=== PATIENT | male | born 1955 | race Two or more races ===

== ENCOUNTER 2020-09-26 10:57 | Outpatient (REF) | payer MEDICARE, SELFPAY ==
[2020-09-26 12:47] LABS: Alanine Aminotransferase 17 U/L (0-40); Albumin Level 4.2 g/dL (3.5-5.0); Alkaline Phosphatase 89 U/L (39-117); Anion Gap 12 (12-20); Aspartate Amino Transferase 16 U/L (5-37); Bilirubin Total 0.8 mg/dL (0.0-1.0); Blood Urea Nitrogen 15 mg/dL (9-16); Calcium 9.5 mg/dL (8.4-10.2); Carbon Dioxide 30 mmol/L (22-29); Chloride 103 mmol/L (96-108); Cholesterol 114 mg/dL; Estimated Glomerular Filt Rate > 60; Glucose Random 162 mg/dL (60-115); HDL Cholesterol 52 mg/dL; LDL Cholesterol Calculated 45 mg/dl; Potassium 4.3 mmol/l (3.3-5.1); Sodium 141 mmol/L (135-145); Total Protein 7.1 g/dL (6.5-8.0); Triglycerides 86 mg/dL
[2020-09-26 13:36] LABS: Estimated Average Glucose 289 mg/dL; Hemoglobin A1c % 11.7 %
== END 2020-09-26 10:58 | disposition home or self-care (01) ==
LOC: HO.LAB 10:57
PROVIDERS: PCP Internal Medicine; Visit Provider Internal Medicine
DX: Z00.01 Encounter for general adult medical examination with abnormal findings (principal); E11.65 Type 2 diabetes mellitus with hyperglycemia; E78.00 Pure hypercholesterolemia, unspecified; F32.9 Major depressive disorder, single episode, unspecified; Z86.010 Personal history of colon polyps
CPT/HCPCS: 36415; 80053; 80061; 83036

== ENCOUNTER 2021-01-21 08:51 | Outpatient (REF) | payer MEDICARE, OTHER, SELFPAY ==
[2021-01-21 10:01] LABS: Estimated Average Glucose 309 mg/dL; Hemoglobin A1c % 12.4 %
[2021-01-21 10:08] LABS: Alanine Aminotransferase 21 U/L (0-40); Albumin Level 3.9 g/dL (3.5-5.0); Alkaline Phosphatase 130 U/L (39-117); Anion Gap 11 (12-20); Aspartate Amino Transferase 13 U/L (5-37); Bilirubin Total 0.5 mg/dL (0.0-1.0); Blood Urea Nitrogen 11 mg/dL (9-16); Calcium 8.6 mg/dL (8.4-10.2); Carbon Dioxide 25 mmol/L (22-29); Chloride 106 mmol/L (96-108); Estimated Glomerular Filt Rate > 60; Glucose Random 194 mg/dL (60-115); Sodium 138 mmol/L (135-145); Total Protein 6.6 g/dL (6.5-8.0)
== END 2021-01-21 08:52 | disposition home or self-care (01) ==
LOC: HO.LAB 08:51
PROVIDERS: PCP Internal Medicine; Visit Provider Internal Medicine
DX: E11.65 Type 2 diabetes mellitus with hyperglycemia (principal); E78.00 Pure hypercholesterolemia, unspecified; I10 Essential (primary) hypertension
CPT/HCPCS: 36415; 80053; 83036

== ENCOUNTER 2021-04-29 08:25 | Outpatient (REF) | payer MEDICARE, OTHER, SELFPAY ==
[2021-04-29 09:31] LABS: Estimated Average Glucose 312 mg/dL; Hemoglobin A1c % 12.5 %
[2021-04-29 09:42] LABS: Alanine Aminotransferase 22 U/L (0-40); Albumin Level 3.9 g/dL (3.5-5.0); Alkaline Phosphatase 121 U/L (39-117); Anion Gap 11 (12-20); Aspartate Amino Transferase 19 U/L (5-37); Bilirubin Total 0.8 mg/dL (0.0-1.0); Blood Urea Nitrogen 13 mg/dL (9-16); Calcium 8.9 mg/dL (8.4-10.2); Carbon Dioxide 29 mmol/L (22-29); Chloride 105 mmol/L (96-108); Estimated Glomerular Filt Rate > 60; Glucose Random 212 mg/dL (60-115); Potassium 4.5 mmol/L (3.3-5.1); Sodium 140 mmol/L (135-145); Total Protein 6.6 g/dL (6.5-8.0)
== END 2021-04-29 08:26 | disposition home or self-care (01) ==
LOC: HO.LAB 08:25
PROVIDERS: PCP Internal Medicine; Visit Provider Internal Medicine
DX: E11.65 Type 2 diabetes mellitus with hyperglycemia (principal); M54.9 Dorsalgia, unspecified; S60.46 Insect bite (nonvenomous) of fingers
CPT/HCPCS: 36415; 80053; 83036

== ENCOUNTER 2021-08-13 11:59 | Outpatient (REF) | payer MEDICARE, OTHER, SELFPAY ==
[2021-08-13 14:00] LABS: Estimated Average Glucose 324 mg/dL; Hemoglobin A1c % 12.9 %
[2021-08-13 14:30] LABS: Alanine Aminotransferase 22 U/L (0-40); Albumin Level 4.2 g/dL (3.5-5.0); Alkaline Phosphatase 141 U/L (39-117); Anion Gap 13 (12-20); Aspartate Amino Transferase 23 U/L (5-37); Bilirubin Total 0.6 mg/dL (0.0-1.0); Blood Urea Nitrogen 10 mg/dL (9-16); Calcium 9.7 mg/dL (8.4-10.2); Carbon Dioxide 26 mmol/L (22-29); Chloride 107 mmol/L (96-108); Estimated Glomerular Filt Rate > 60; Glucose Random 339 mg/dL (60-115); Potassium 3.9 mmol/L (3.3-5.1); Sodium 142 mmol/L (135-145); Total Protein 7.2 g/dL (6.5-8.0)
== END 2021-08-13 12:00 | disposition home or self-care (01) ==
LOC: HO.10HDL 11:59
PROVIDERS: Visit Provider Internal Medicine
DX: E11.65 Type 2 diabetes mellitus with hyperglycemia (principal)
CPT/HCPCS: 36415; 80053; 83036

== ENCOUNTER 2021-12-17 12:31 | Outpatient (REF) | payer MEDICARE, OTHER, SELFPAY ==
[2021-12-17 13:22] LABS: Estimated Average Glucose 318 mg/dL; Hemoglobin A1c % 12.7 %
[2021-12-17 13:51] LABS: Alanine Aminotransferase 16 U/L (0-40); Albumin Level 4.3 g/dL (3.5-5.0); Alkaline Phosphatase 125 U/L (39-117); Anion Gap 15 (12-20); Aspartate Amino Transferase 18 U/L (5-37); Bilirubin Total 0.5 mg/dL (0.0-1.0); Blood Urea Nitrogen 12 mg/dL (9-16); Calcium 9.8 mg/dL (8.4-10.2); Carbon Dioxide 23 mmol/L (22-29); Chloride 107 mmol/L (96-108); Cholesterol 236 mg/dL; Estimated Glomerular Filt Rate > 60; Glucose Random 57 mg/dL (60-115); HDL Cholesterol 60 mg/dL; LDL Cholesterol Calculated 156 mg/dl; Potassium 3.7 mmol/L (3.3-5.1); Sodium 141 mmol/L (135-145); Total Protein 7.4 g/dL (6.5-8.0); Triglycerides 103 mg/dL
[2021-12-17 14:12] LABS: Vitamin B12 527 pg/mL (200-900)
[2021-12-17 14:32] LABS: Creatinine Urine 106.64 mg/dL; Microalbum/Creatinine Ratio Ur 13.1 ug/mg cr
== END 2021-12-17 12:32 | disposition home or self-care (01) ==
LOC: HO.LAB 12:31
PROVIDERS: PCP Internal Medicine; Visit Provider Internal Medicine
DX: E11.69 Type 2 diabetes mellitus with other specified complication (principal); E78.00 Pure hypercholesterolemia, unspecified; I10 Essential (primary) hypertension; Z86.010 Personal history of colon polyps
CPT/HCPCS: 36415; 80053; 80061; 82043; 82607; 83036

== ENCOUNTER 2022-01-02 19:01 | Outpatient (REF) | payer MEDICARE, OTHER, SELFPAY ==
--- NOTE | ~2022-01-02 | MR_ITS ---
EXAMINATION: MR CERVICAL SPINE WITHOUT CONTRAST CLINICAL INFORMATION: Cervical radiculopathy. COMPARISON: None available. TECHNIQUE: MRI of the cervical spine was obtained using routine sequences without contrast. FINDINGS: Mild degenerative anterolisthesis of C6 on C7. Otherwise, normal anatomic alignment. Moderate degenerative disc disease from C3-C7 and T2-T4. Mild degenerative disc disease at all additional cervical levels. Associated mixed Modic type discogenic endplate changes including mild Modic type I discogenic edema at C4-C5 and C7-T1. Mild marrow edema within the C2-C4 facets consistent with degenerative stress reaction. No additional suspicious marrow edema. Mild degenerative loss of C5 and C6 vertebral body heights. Otherwise, the vertebral body heights are well-maintained. No overt spinal cord signal abnormalities. Limited evaluation of the soft tissues of the neck without demonstrated abnormalities. The flow voids of the major cervical vessels are maintained. Prominent CSF space posterior to the cerebellum. Prominent arachnoid granulations within the right aspect of the occipital base. Otherwise, normal appearance of the cervicomedullary junction and visualized posterior fossa. SPINAL LEVELS: C2-C3: Mild disc-osteophyte complex. There is no uncovertebral joint arthropathy. There is moderate bilateral facet joint arthropathy. There is severe left and moderate right neural foraminal stenosis. There is no spinal canal stenosis. C3-C4: Moderate disc-osteophyte complex. There is moderate bilateral uncovertebral joint arthropathy. There is moderate bilateral facet joint arthropathy. There is severe bilateral neural foraminal stenosis. There is moderate spinal canal stenosis. C4-C5: Moderate disc-osteophyte complex with superimposed central disc extrusion with inferior migration. There is severe bilateral uncovertebral joint arthropathy. There is moderate bilateral facet joint arthropathy. There is severe bilateral neural foraminal stenosis. There is moderate to severe spinal canal stenosis. C5-C6: Moderate disc-osteophyte complex. There is severe bilateral uncovertebral joint arthropathy. There is moderate bilateral facet joint arthropathy. There is severe bilateral neural foraminal stenosis. There is moderate spinal canal stenosis. C6-C7: Moderate disc-osteophyte complex eccentric to the left. There is moderate bilateral uncovertebral joint arthropathy. There is moderate bilateral facet joint arthropathy. There is severe bilateral neural foraminal stenosis. There is moderate spinal canal stenosis. C7-T1: Mild disc-osteophyte complex. There is mild bilateral uncovertebral joint arthropathy. There is mild bilateral facet joint arthropathy. There is no neural foraminal stenosis. There is no spinal canal stenosis. MR/MR cervical spine wo con IMPRESSION: Advanced multilevel degenerative spondyloarthropathy of the cervical spine as described in detail above. Most notably, there is moderate to severe spinal canal stenosis at C4-C5. Moderate spinal canal stenoses at C3-C4, C5-C6, and C6-C7. Moderate to severe neural foraminal stenoses from C2-C7.
== END 2022-01-02 19:02 | disposition home or self-care (01) ==
LOC: HO.MRI 19:01
PROVIDERS: Visit Provider Internal Medicine
DX: M54.12 Radiculopathy, cervical region (principal)
CPT/HCPCS: 72141

== ENCOUNTER 2022-01-15 09:18 | Day surgery (SDC) | payer MEDICARE, OTHER, SELFPAY ==
[2022-01-09 14:58] VITALS: BMI 30.3
--- NOTE | 2022-01-14 09:35 | P.CONAN_ITS ---
HPI - Anesthesia Eval Consult details Narrative: 66yo M for [facility] Past Medical History Medical History (Updated 01/09/22 @ 14:49 by Liane Zapata, RN) Diabetes Elevated cholesterol HTN (hypertension) Surgical History Surgical History (Updated 01/09/22 @ 14:50 by Liane Zapata, RN) H/O colonoscopy Hx of knee surgery Social History Social History Patient Tobacco Use Status: Tobacco use Unknown Use of substances other than those prescribed or required for medical reasons: No Advance Directives: No Advance Directives Information Provided: Yes (brochure mailed) Advance Directives on File: No Meds Allergies Allergy/AdvReac Type Severity Reaction Status Date / Time No Known Allergies Allergy Verified 01/15/22 09:45 Home Medications Medication Instructions Recorded Confirmed Last Taken Type amlodipine 10 mg tablet 1 tab PO DAILY 01/09/22 01/09/22 Unknown History aspirin 81 mg tablet,delayed 1 tab PO DAILY 01/09/22 01/09/22 Unknown History release brimonidine 0.2 % eye drops 1 drp OPHTHALMIC (EYE) BID 01/09/22 01/09/22 Unknown History insulin glargine 100 unit/mL (3 unit SUBCUT 01/09/22 01/09/22 Unknown History mL) subcutaneous pen (Lantus Solostar U-100 Insulin) insulin lispro 100 unit/mL 15 unit SUBCUT TID 01/09/22 01/09/22 Unknown History subcutaneous pen (Humalog KwikPen (U-100) Insulin) latanoprost 0.005 % eye drops 1 drp OPHTHALMIC (EYE) BEDTIME 01/09/22 01/09/22 Unknown History meloxicam 15 mg tablet 1 tab PO DAILY 01/09/22 01/09/22 Unknown History metformin 1,000 mg tablet 1 tab PO BID 01/09/22 01/09/22 Unknown History rosuvastatin 40 mg tablet 1 tab PO DAILY 01/09/22 01/09/22 Unknown History sertraline 100 mg tablet 1 tab PO DAILY 01/09/22 01/09/22 Unknown History Exam Exam Date and Time: January 14, 2022 0935 Height,Weight and Vital Signs: Height 5 ft 2 in Weight 75.296 kg Pertinent Lab Results Pertinent Lab Results: Laboratory Tests 12/17/21 12:43 Sodium 141 Potassium 3.7 Chloride 107 Carbon Dioxide 23 BUN 12 Creatinine 0.68 Assessment and Plan Assessment Anesthesia Assessment: Chart Reviewed
[2022-01-15 10:01] VITALS: BP 135/91; PULSE 60; RESP 18; TEMP 36.3; O2SAT 99
[2022-01-15 10:02] LABS: Glucose, Whole Blood 127 mg/dL (60-115)
[2022-01-15] MEDS: Lactated Ringers 1,000 ML 100 ML IVCONT (10:07)
--- NOTE | 2022-01-15 10:12 | PC.NURSE ---
IV 20 g angio started in right forearm, not groin.
[2022-01-15 12:19] VITALS: BP 82/42; PULSE 55; RESP 16; TEMP 36.1; O2SAT 99
--- NOTE | 2022-01-15 12:26 | PM.OP ---
Brief Operative Note Date of Service: 01/15/22 Pre-op diagnosis: Screening Post-op diagnosis: other (Diverticulosis) Procedure: Colonoscopy to the cecum and TI Surgeon: Ad Cespedes Anesthesia: MAC Was an Kelp Or Seagrass Gatherer used for this Procedure?: No Estimated blood loss (mL): 0 Pathology: none sent Condition: stable Disposition: PACU
[2022-01-15 12:34] VITALS: BP 103/55; PULSE 56; RESP 16; O2SAT 98
[2022-01-15 12:49] VITALS: BP 115/69; PULSE 58; RESP 16; TEMP 36.1; O2SAT 98
--- NOTE | 2022-01-15 23:15 | OP_ITS ---
SURGEON: Ad Cespedes MD INDICATIONS: The patient presents for evaluation of colorectal cancer screening and personal history of tubular adenoma of the colon. Full consent was obtained from him for this, including risks of bleeding and perforation. PREOPERATIVE DIAGNOSIS: POSTOPERATIVE DIAGNOSIS: PROCEDURE PERFORMED: Colonoscopy to cecum and terminal ileum. ESTIMATED BLOOD LOSS: COMPLICATIONS: ANESTHESIA: Monitored anesthesia care. ASSISTANTS: SPECIMENS: PREOPERATIVE DIAGNOSES: Colorectal cancer screening and personal history of tubular adenoma of the colon. POSTOPERATIVE DIAGNOSES: Colorectal cancer screening and personal history of tubular adenoma of the colon, sigmoid diverticulosis, and internal hemorrhoids. DESCRIPTION OF PROCEDURE: The patient was placed in the left lateral decubitus position. The digital rectal exam revealed no abnormalities. The Olympus video pediatric colonoscope was entered into the rectum and advanced easily to the cecum. Once in the cecum, I did identify normal-appearing cecal pouch with appendiceal orifice and a normal-appearing ileocecal valve. The terminal ileum was cannulated and appeared normal. The scope was withdrawn back from the colon. The entire cecum and ileocecal valve appeared normal. The scope was slowly withdrawn assessing all mucosal surfaces carefully. Preparation was excellent. I did not visualize any sign of polyps, colitis, nor angiodysplasia. There was a mild amount of sigmoid diverticulosis. In the rectum, scope was retroflexed visualizing small internal hemorrhoids, but no other pathology. The rectal mucosa appeared normal. Scope was straightened and withdrawn from the patient. He tolerated the procedure well and was returned to recovery area in stable condition. IMPRESSION: 1. Mild sigmoid diverticulosis. 2. Internal hemorrhoids. PLAN: Given his previous history, I would recommend a followup colonoscopy in 5 years for further screening. He will otherwise see me on a p.r.n. basis. He was advised that he could resume his aspirin today. MD ALEXIS Jones/TIFFANIE / [id number]
== END 2022-01-15 13:02 | disposition home or self-care (01) ==
PROVIDERS: PCP Internal Medicine; Visit Provider Internal Medicine
PROC: 0DJD8ZZ Inspection of Lower Intestinal Tract, Via Natural or Artificial Opening Endoscopic (ICD-10-PCS; CPT 45378; principal; 2022-01-15 11:00)
DX: Z12.11 Encounter for screening for malignant neoplasm of colon (principal); Z86.010 Personal history of colon polyps; K57.30 Diverticulosis of large intestine without perforation or abscess without bleeding; K64.8 Other hemorrhoids; I10 Essential (primary) hypertension; E78.5 Hyperlipidemia, unspecified; E11.9 Type 2 diabetes mellitus without complications; Z79.4 Long term (current) use of insulin; Z79.82 Long term (current) use of aspirin; Z79.899 Other long term (current) drug therapy
CPT/HCPCS: G0105; 82947

== ENCOUNTER 2022-07-07 07:40 | Outpatient (REF) | payer MEDICARE, OTHER, SELFPAY ==
[2022-07-07 08:17] LABS: Estimated Average Glucose 315 mg/dL; Hemoglobin A1c % 12.6 %
[2022-07-07 08:28] LABS: Alanine Aminotransferase 14 U/L (0-40); Albumin Level 3.9 g/dL (3.5-5.0); Alkaline Phosphatase 125 U/L (39-117); Anion Gap 14 (12-20); Aspartate Amino Transferase 14 U/L (5-37); Bilirubin Total 0.5 mg/dL (0.0-1.0); Blood Urea Nitrogen 12 mg/dL (9-16); Calcium 9.1 mg/dL (8.4-10.2); Carbon Dioxide 25 mmol/L (22-29); Chloride 104 mmol/L (96-108); Cholesterol 258 mg/dL; Estimated Glomerular Filt Rate > 60; Glucose Random 282 mg/dL (60-115); HDL Cholesterol 57 mg/dL; LDL Cholesterol Calculated 171 mg/dl; Potassium 4.7 mmol/L (3.3-5.1); Sodium 138 mmol/L (135-145); Total Protein 6.7 g/dL (6.5-8.0); Triglycerides 154 mg/dL
== END 2022-07-07 07:41 | disposition home or self-care (01) ==
LOC: HO.LAB 07:40
PROVIDERS: PCP Internal Medicine; Visit Provider Internal Medicine
DX: E78.00 Pure hypercholesterolemia, unspecified (principal); I10 Essential (primary) hypertension; E11.9 Type 2 diabetes mellitus without complications
CPT/HCPCS: 36415; 80053; 80061; 83036

== ENCOUNTER 2022-10-06 08:45 | Outpatient (REF) | payer MEDICARE, OTHER, SELFPAY ==
[2022-10-06 09:09] LABS: MANUAL DIFF FLAG NO
[2022-10-06 09:50] LABS: Basophils Absolute Auto 0.1 X10*3/uL (0.0-0.2); Basophils Percent Auto 1.2 % (0-2); Eosinophils Absolute Auto 0.2 X10*3/uL (0.0-0.4); Eosinophils Percent Auto 4.2 % (0-4); Hematocrit 39.1 % (42.0-52.0); Hemoglobin 12.9 g/dl (14.0-18.0); Imm Gran Abs Auto 0.01 X10*3/uL (0.00-0.03); Imm Gran Pct Auto 0.2 % (0.0-0.4); Lymphocytes Absolute Auto 1.6 X10*3/uL (1.2-4.9); Mean Corpuscular Hemoglobin 26.4 pg (27.0-33.0); Mean Platelet Volume 9.2 fL (9.4-12.4); Monocytes Absolute Auto 0.3 X10*3/uL (0.1-1.2); Monocytes Percent Auto 8.4 % (2-11); Neutrophils Absolute Auto 1.9 x10*3/uL (2.0-8.3); Platelet Count 263 X10*3/uL (160-400); Red Blood Count 4.89 X10*6/uL (4.60-5.80); Red Cell Distribution Width 14.6 % (11.0-16.0)
[2022-10-06 10:12] LABS: Creatinine Urine 187.35 mg/dL; Microalbum/Creatinine Ratio Ur 19.7 ug/mg cr
[2022-10-06 10:25] LABS: Alanine Aminotransferase 10 U/L (0-40); Alkaline Phosphatase 113 U/L (39-117); Anion Gap 10 (12-20); Aspartate Amino Transferase 12 U/L (5-37); Bilirubin Total 0.8 mg/dL (0.0-1.0); Blood Urea Nitrogen 13 mg/dL (9-16); Carbon Dioxide 27 mmol/L (22-29); Chloride 107 mmol/L (96-108); Cholesterol 142 mg/dL; Estimated Glomerular Filt Rate > 60; Glucose Random 200 mg/dL (60-115); HDL Cholesterol 56 mg/dL; LDL Cholesterol Calculated 69 mg/dl; Potassium 4.2 mmol/L (3.3-5.1); Sodium 140 mmol/L (135-145); Total Protein 6.7 g/dL (6.5-8.0); Triglycerides 85 mg/dL
[2022-10-06 10:28] LABS: Estimated Average Glucose 355 mg/dL
[2022-10-06 10:42] LABS: Prostate Specific Antigen Scr 1.58 ng/mL (<0.05-4.0); Thyroid Stimulating Hormone 0.73 uIU/mL (0.32-4.0)
== END 2022-10-06 08:46 | disposition home or self-care (01) ==
LOC: HO.LAB 08:45
PROVIDERS: Visit Provider Internal Medicine
DX: Z12.5 Encounter for screening for malignant neoplasm of prostate (principal); E11.65 Type 2 diabetes mellitus with hyperglycemia; E78.00 Pure hypercholesterolemia, unspecified; I10 Essential (primary) hypertension
CPT/HCPCS: 36415; 80053; 80061; 82043; 83036; 84153; 84443; 85025

== ENCOUNTER 2023-01-05 09:38 | Outpatient (REF) | payer MEDICARE, OTHER, SELFPAY ==
[2023-01-05 10:57] LABS: MANUAL DIFF FLAG NO
[2023-01-05 11:09] LABS: Basophils Absolute Auto 0.1 X10*3/uL (0.0-0.2); Basophils Percent Auto 1.2 % (0-2); Eosinophils Absolute Auto 0.1 X10*3/uL (0.0-0.4); Eosinophils Percent Auto 2.5 % (0-4); Hematocrit 39.6 % (42.0-52.0); Hemoglobin 12.9 g/dl (14.0-18.0); Imm Gran Abs Auto 0.01 X10*3/uL (0.00-0.03); Imm Gran Pct Auto 0.2 % (0.0-0.4); Lymphocytes Absolute Auto 1.9 X10*3/uL (1.2-4.9); Lymphocytes Percent Auto 37.6 % (20-40); Mean Corpuscular HGB Conc 32.6 g/dl (31.0-36.0); Mean Corpuscular Hemoglobin 26.9 pg (27.0-33.0); Mean Corpuscular Volume 82.5 fL (80.0-98.0); Mean Platelet Volume 9.2 fL (9.4-12.4); Monocytes Absolute Auto 0.4 X10*3/uL (0.1-1.2); Monocytes Percent Auto 8.6 % (2-11); Neutrophils Absolute Auto 2.6 x10*3/uL (2.0-8.3); Neutrophils Percent Auto 49.9 % (45-73); Platelet Count 347 X10*3/uL (160-400); Red Cell Distribution Width 13.6 % (11.0-16.0); White Blood Count 5.1 X10*3/uL (4.8-10.8)
[2023-01-05 12:22] LABS: Creatinine Urine 64.42 mg/dL; Microalbum/Creatinine Ratio Ur 12.4 ug/mg cr
[2023-01-05 12:35] LABS: Alanine Aminotransferase 14 U/L (0-40); Albumin Level 4.1 g/dL (3.5-5.0); Alkaline Phosphatase 120 U/L (39-117); Anion Gap 13 (12-20); Aspartate Amino Transferase 19 U/L (5-37); Bilirubin Total 0.7 mg/dL (0.0-1.0); Blood Urea Nitrogen 10 mg/dL (9-16); Carbon Dioxide 26 mmol/L (22-29); Chloride 105 mmol/L (96-108); Cholesterol 170 mg/dL; Estimated Glomerular Filt Rate > 60; Glucose Fasting 106 mg/dL (60-99); HDL Cholesterol 49 mg/dL; LDL Cholesterol Calculated 104 mg/dl; Potassium 4.1 mmol/L (3.3-5.1); Sodium 140 mmol/L (135-145); Total Protein 7.2 g/dL (6.5-8.0); Triglycerides 85 mg/dL
[2023-01-05 12:44] LABS: Estimated Average Glucose 197 mg/dL; Hemoglobin A1c % 8.5 %
[2023-01-05 12:59] LABS: Prostate Specific Antigen Scr 2.59 ng/mL (<0.05-4.0); Thyroid Stimulating Hormone 1.22 uIU/mL (0.32-4.0)
== END 2023-01-05 09:39 | disposition home or self-care (01) ==
LOC: HO.10HDL 09:38
PROVIDERS: Visit Provider Internal Medicine
DX: E11.65 Type 2 diabetes mellitus with hyperglycemia (principal); E78.00 Pure hypercholesterolemia, unspecified; I10 Essential (primary) hypertension; Z12.5 Encounter for screening for malignant neoplasm of prostate
CPT/HCPCS: 36415; 80053; 80061; 82043; 83036; 84153; 84443; 85025

== ENCOUNTER 2023-01-06 11:42 | Outpatient (REF) | payer MEDICARE, OTHER, SELFPAY ==
--- NOTE | ~2023-01-06 | XR_ITS ---
EXAMINATION: XR SHOULDER, RIGHT CLINICAL INFORMATION: Osteoarthritis of the right shoulder. COMPARISON: None available. TECHNIQUE: AP external rotation, Grashey, scapular Y, and axillary views of the right shoulder. FINDINGS: There is no evidence of acute fracture or dislocation of the right shoulder. No significant degenerative change of the glenohumeral joint is seen. No calcific tendinitis is evident. There is mild degenerative change of the acromioclavicular joint. There is no widening of the coracoclavicular space. XR/XR shoulder RT min 2V IMPRESSION: No significant right shoulder abnormality appreciated.
== END 2023-01-06 11:43 | disposition home or self-care (01) ==
LOC: HO.XRAY 11:42
PROVIDERS: PCP Internal Medicine; Visit Provider Internal Medicine
DX: M19.011 Primary osteoarthritis, right shoulder (principal)
CPT/HCPCS: 73030

== ENCOUNTER → 2023-02-17 14:26 | Outpatient (BNVA) | payer MEDICARE, OTHER, SELFPAY | PROVIDERS: PCP Internal Medicine; Visit Provider Physician Assistant | DX: M54.12 Radiculopathy, cervical region (principal) | CPT/HCPCS: 99202 ==

== ENCOUNTER 2023-04-06 09:12 | Outpatient (REF) | payer MEDICARE, OTHER, SELFPAY ==
[2023-04-06 11:08] LABS: Estimated Average Glucose 189 mg/dL; Hemoglobin A1c % 8.2 %
[2023-04-06 11:16] LABS: Alanine Aminotransferase 13 U/L (0-40); Albumin Level 4.1 g/dL (3.5-5.0); Alkaline Phosphatase 99 U/L (39-117); Anion Gap 15 (12-20); Aspartate Amino Transferase 14 U/L (5-37); Bilirubin Total 0.5 mg/dL (0.0-1.0); Blood Urea Nitrogen 14 mg/dL (9-16); Carbon Dioxide 24 mmol/L (22-29); Chloride 108 mmol/L (96-108); Estimated Glomerular Filt Rate > 60; Glucose Random 129 mg/dL (60-115); Potassium 4.9 mmol/L (3.3-5.1); Sodium 142 mmol/L (135-145); Total Protein 7.3 g/dL (6.5-8.0)
== END 2023-04-06 09:13 | disposition home or self-care (01) ==
LOC: HO.10HDL 09:12
PROVIDERS: Visit Provider Internal Medicine
DX: E11.65 Type 2 diabetes mellitus with hyperglycemia (principal); E78.00 Pure hypercholesterolemia, unspecified; I10 Essential (primary) hypertension; J02.9 Acute pharyngitis, unspecified; M67.813 Other specified disorders of tendon, right shoulder; R80.8 Other proteinuria
CPT/HCPCS: 36415; 80053; 83036

== ENCOUNTER 2023-05-22 07:20 | Outpatient (REF) | payer MEDICARE, OTHER, SELFPAY ==
--- NOTE | ~2023-05-22 | CT_ITS ---
CT CERVICAL SPINE WITHOUT CONTRAST HISTORY: Spondylosis TECHNIQUE: CT images of the cervical spine were acquired without intravenous contrast. This CT examination was performed using dose optimization techniques as appropriate, variously including the following: *Automated exposure control *Adjustment of mA and/or kV according to patient size (this includes techniques or standardized protocols for targeted exams where dose is matched to indication/reason for exam; i.e. extremities or head) *Use of iterative reconstruction technique DLP: 351.01 mGy-cm COMPARISON: MRI cervical spine 01/02/2022 FINDINGS: The craniocervical junction is intact. Mild arthrosis of the atlantodental interval. The cervical lordosis is preserved. There is no significant spondylolisthesis. Vertebral body heights are normal without acute compression fracture. No suspicious osseous lesion. There is mild disc space height loss at C4-C5 and C5-C6. There are multilevel degenerative changes with level by level detail as follows: C2-C3: Mild facet arthropathy. No significant osseous spinal canal stenosis or neural foraminal narrowing. C3-C4: Severe right facet arthropathy and right greater than left uncovertebral hypertrophy. Disc osteophyte complex. Mild to moderate central spinal canal stenosis. Moderate right and mild left osseous spinal canal stenosis. C4-C5: Mild facet arthropathy, uncovertebral hypertrophy, disc bulge. Moderate to severe spinal canal stenosis. Mild osseous bilateral neural foraminal narrowing. C5-C6: Mild facet arthropathy, uncovertebral hypertrophy, disc osteophyte complex. Moderate central spinal canal stenosis. Mild to moderate osseous bilateral neural foraminal narrowing C6-C7: Mild facet arthropathy. Left eccentric disc osteophyte complex. No significant osseous spinal canal stenosis. Moderate spinal canal stenosis C7-T1: No spinal canal or foraminal stenosis. No significant abnormalities of the paraspinal musculature. There is a 7 mm pulmonary nodule at the right lung apex with small region of peripheral lucency/cavitation. The visualized intracranial structures are normal. There is a pseudoarticulation between the superior cornu of the right thyroid cartilage and the right posterior hyoid bone. CT/CT cervical spine wo IV con IMPRESSION: 1. Multilevel cervical spondylosis with moderate to severe spinal canal stenosis at C4-C5 and moderate spinal canal stenosis at C5-C6 and C6-C7. Multilevel mild to moderate osseous neural foraminal narrowing as described. 2. There is a 7 mm pulmonary nodule at the right lung apex with small region of peripheral lucency/cavitation. Recommend further evaluation with dedicated CT of the chest.
== END 2023-05-22 07:21 | disposition home or self-care (01) ==
LOC: HO.CT 07:20
PROVIDERS: Visit Provider Physician Assistant
DX: M47.12 Other spondylosis with myelopathy, cervical region (principal)
CPT/HCPCS: 72125

== ENCOUNTER 2023-07-06 09:50 | Outpatient (REF) | payer MEDICARE, OTHER, SELFPAY ==
[2023-07-06 10:45] LABS: Estimated Average Glucose 177 mg/dL; Hemoglobin A1c % 7.8 % (<6.0)
[2023-07-06 11:27] LABS: Alanine Aminotransferase 16 U/L (0-40); Albumin Level 4.2 g/dL (3.5-5.0); Alkaline Phosphatase 125 U/L (39-117); Anion Gap 12 (12-20); Aspartate Amino Transferase 17 U/L (5-37); Bilirubin Total 0.6 mg/dL (0.0-1.0); Blood Urea Nitrogen 13 mg/dL (9-16); Calcium 10.5 mg/dL (8.4-10.2); Carbon Dioxide 26 mmol/L (22-29); Chloride 106 mmol/L (96-108); Cholesterol 229 mg/dL (<200); Estimated Glomerular Filt Rate > 60; Glucose Random 122 mg/dL (60-115); HDL Cholesterol 46 mg/dL (>40); LDL Cholesterol Calculated 150 mg/dL (<100); Sodium 140 mmol/L (135-145); Total Protein 7.8 g/dL (6.5-8.0); Triglycerides 165 mg/dL (<150)
== END 2023-07-06 09:51 | disposition home or self-care (01) ==
LOC: HO.LAB 09:50
PROVIDERS: PCP Internal Medicine; Visit Provider Internal Medicine
DX: E11.65 Type 2 diabetes mellitus with hyperglycemia (principal); E78.00 Pure hypercholesterolemia, unspecified; M48.02 Spinal stenosis, cervical region; M54.12 Radiculopathy, cervical region
CPT/HCPCS: 36415; 80053; 80061; 83036

== ENCOUNTER 2023-10-12 07:32 | Outpatient (REF) | payer MEDICARE, OTHER, SELFPAY ==
[2023-10-12 08:06] LABS: MANUAL DIFF FLAG NO
[2023-10-12 08:50] LABS: Basophils Absolute Auto 0.1 X10*3/uL (0.0-0.2); Basophils Percent Auto 1.3 % (0-2); Eosinophils Absolute Auto 0.2 X10*3/uL (0.0-0.4); Eosinophils Percent Auto 3.9 % (0-4); Hematocrit 43.1 % (42.0-52.0); Hemoglobin 14.8 g/dl (14.0-18.0); Imm Gran Abs Auto 0.01 X10*3/uL (0.00-0.03); Imm Gran Pct Auto 0.2 % (0.0-0.4); Lymphocytes Absolute Auto 2.2 X10*3/uL (1.2-4.9); Lymphocytes Percent Auto 38.8 % (20-40); Mean Corpuscular HGB Conc 34.3 g/dl (31.0-36.0); Mean Corpuscular Hemoglobin 28.6 pg (27.0-33.0); Mean Corpuscular Volume 83.4 fL (80.0-98.0); Mean Platelet Volume 9.5 fL (9.4-12.4); Monocytes Absolute Auto 0.4 X10*3/uL (0.1-1.2); Monocytes Percent Auto 7.9 % (2-11); Neutrophils Absolute Auto 2.7 x10*3/uL (2.0-8.3); Neutrophils Percent Auto 47.9 % (45-73); Platelet Count 312 X10*3/uL (160-400); Red Blood Count 5.17 X10*6/uL (4.60-5.80); Red Cell Distribution Width 12.5 % (11.0-16.0); White Blood Count 5.6 X10*3/uL (4.8-10.8)
[2023-10-12 09:01] LABS: Estimated Average Glucose 258 mg/dL; Hemoglobin A1c % 10.6 % (<6.0)
[2023-10-12 09:20] LABS: Alanine Aminotransferase 18 U/L (0-40); Alkaline Phosphatase 143 U/L (39-117); Anion Gap 13 (12-20); Aspartate Amino Transferase 18 U/L (5-37); Bilirubin Total 0.5 mg/dL (0.0-1.0); Blood Urea Nitrogen 11 mg/dL (9-16); Calcium 9.4 mg/dL (8.4-10.2); Carbon Dioxide 29 mmol/L (22-29); Chloride 104 mmol/L (96-108); Cholesterol 116 mg/dL (<200); Estimated Glomerular Filt Rate > 60; Glucose Random 201 mg/dL (60-115); HDL Cholesterol 49 mg/dL (>40); LDL Cholesterol Calculated 54 mg/dL (<100); Potassium 4.3 mmol/L (3.3-5.1); Sodium 142 mmol/L (135-145); Total Protein 7.5 g/dL (6.5-8.0); Triglycerides 67 mg/dL (<150)
[2023-10-12 09:20] LABS: Creatinine Urine 195.86 mg/dL; Microalbum/Creatinine Ratio Ur 14.8 ug/mg cr (<30)
[2023-10-12 10:03] LABS: Prostate Specific Antigen Scr 1.51 ng/mL (<0.05-4.0)
== END 2023-10-12 07:33 | disposition home or self-care (01) ==
LOC: HO.LAB 07:32
PROVIDERS: PCP Internal Medicine; Visit Provider Internal Medicine
DX: E11.65 Type 2 diabetes mellitus with hyperglycemia (principal); E78.00 Pure hypercholesterolemia, unspecified; I10 Essential (primary) hypertension; K21.9 Gastro-esophageal reflux disease without esophagitis; Z68.29 Body mass index [BMI] 29.0-29.9, adult; Z12.5 Encounter for screening for malignant neoplasm of prostate
CPT/HCPCS: 36415; 80053; 80061; 82043; 82570; 83036; 84153; 85025

== ENCOUNTER 2024-01-19 06:40 | Outpatient (REF) | payer MEDICARE, OTHER, SELFPAY ==
[2024-01-19 08:08] LABS: Estimated Average Glucose 286 mg/dL; Hemoglobin A1c % 11.6 % (<6.0)
[2024-01-19 08:27] LABS: Alanine Aminotransferase 13 U/L (0-40); Albumin Level 4.2 g/dL (3.5-5.0); Alkaline Phosphatase 179 U/L (39-117); Anion Gap 14 (12-20); Aspartate Amino Transferase 15 U/L (5-37); Bilirubin Total 0.4 mg/dL (0.0-1.0); Blood Urea Nitrogen 18 mg/dL (9-16); Calcium 9.1 mg/dL (8.4-10.2); Carbon Dioxide 25 mmol/L (22-29); Chloride 107 mmol/L (96-108); Estimated Glomerular Filt Rate > 60; Glucose Random 255 mg/dL (60-115); Potassium 4.1 mmol/L (3.3-5.1); Sodium 142 mmol/L (135-145); Total Protein 7.6 g/dL (6.5-8.0)
== END 2024-01-19 06:41 | disposition home or self-care (01) ==
LOC: HO.LAB 06:40
PROVIDERS: PCP Internal Medicine; Visit Provider Internal Medicine
DX: E78.00 Pure hypercholesterolemia, unspecified (principal); I10 Essential (primary) hypertension; M17.12 Unilateral primary osteoarthritis, left knee
CPT/HCPCS: 36415; 80053; 83036

== ENCOUNTER 2024-04-13 07:26 | Outpatient (REF) | payer MEDICARE, OTHER, SELFPAY ==
[2024-04-13 08:05] LABS: Estimated Average Glucose 240 mg/dL
[2024-04-13 08:18] LABS: Alanine Aminotransferase 17 U/L (0-40); Albumin Level 4.1 g/dL (3.5-5.0); Alkaline Phosphatase 110 U/L (39-117); Anion Gap 10 (12-20); Aspartate Amino Transferase 16 U/L (5-37); Bilirubin Total 0.5 mg/dL (0.0-1.0); Blood Urea Nitrogen 14 mg/dL (9-16); Calcium 9.3 mg/dL (8.4-10.2); Carbon Dioxide 29 mmol/L (22-29); Chloride 108 mmol/L (96-108); Estimated Glomerular Filt Rate > 60; Glucose Random 102 mg/dL (60-115); Sodium 143 mmol/L (135-145); Total Protein 6.8 g/dL (6.5-8.0)
== END 2024-04-13 07:27 | disposition home or self-care (01) ==
LOC: HO.LAB 07:26
PROVIDERS: PCP Internal Medicine; Visit Provider Internal Medicine
DX: E11.65 Type 2 diabetes mellitus with hyperglycemia (principal); I10 Essential (primary) hypertension; M17.12 Unilateral primary osteoarthritis, left knee
CPT/HCPCS: 36415; 80053; 83036

== ENCOUNTER 2024-09-01 07:01 | Outpatient (REF) | payer MEDICARE, OTHER, SELFPAY ==
[2024-09-01 07:55] LABS: Estimated Average Glucose 269 mg/dL; Hemoglobin A1C 360.2055 umol/L; Total Hemoglobin (HGBA1C) 3732.6788 umol/L
[2024-09-01 08:19] LABS: Creatinine Urine 165.25 mg/dL; Microalbum/Creatinine Ratio Ur 13.9 ug/mg cr (<30)
[2024-09-01 08:36] LABS: Alanine Aminotransferase 27 U/L (0-40); Albumin Level 4.3 g/dL (3.5-5.0); Alkaline Phosphatase 146 U/L (39-117); Anion Gap 10 (12-20); Aspartate Amino Transferase 20 U/L (5-37); Bilirubin Total 0.7 mg/dL (0.0-1.0); Blood Urea Nitrogen 16 mg/dL (9-16); Calcium 9.3 mg/dL (8.4-10.2); Carbon Dioxide 30 mmol/L (22-29); Chloride 103 mmol/L (96-108); Cholesterol 141 mg/dL (<200); Estimated Glomerular Filt Rate > 60; Glucose Random 172 mg/dL (60-115); HDL Cholesterol 51 mg/dL (>40); LDL Cholesterol Calculated 73 mg/dL (<100); Potassium 3.7 mmol/L (3.3-5.1); Sodium 139 mmol/L (135-145); Total Protein 7.7 g/dL (6.5-8.0); Triglycerides 88 mg/dL (<150)
[2024-09-01 08:39] LABS: Prostate Specific Antigen Scr 2.11 ng/mL (<0.05-4.0)
== END 2024-09-01 07:02 | disposition home or self-care (01) ==
LOC: HO.LAB 07:01
PROVIDERS: PCP Internal Medicine; Visit Provider Internal Medicine
DX: E11.9 Type 2 diabetes mellitus without complications (principal); E78.00 Pure hypercholesterolemia, unspecified; I10 Essential (primary) hypertension; N40.0 Benign prostatic hyperplasia without lower urinary tract symptoms; Z12.5 Encounter for screening for malignant neoplasm of prostate
CPT/HCPCS: 36415; 80053; 80061; 82043; 82570; 83036; 84153

== ENCOUNTER 2024-11-28 07:28 | Outpatient (REF) | payer MEDICARE, OTHER, SELFPAY ==
[2024-11-28 09:02] LABS: Estimated Average Glucose 229 mg/dL; Hemoglobin A1c % 9.6 % (<6.0)
[2024-11-28 09:22] LABS: Alanine Aminotransferase 21 U/L (0-40); Albumin Level 4.2 g/dL (3.5-5.0); Alkaline Phosphatase 109 U/L (39-117); Anion Gap 11 (12-20); Aspartate Amino Transferase 22 U/L (5-37); Bilirubin Total 0.6 mg/dL (0.0-1.0); Blood Urea Nitrogen 8 mg/dL (9-16); Calcium 8.9 mg/dL (8.4-10.2); Carbon Dioxide 28 mmol/L (22-29); Chloride 108 mmol/L (96-108); Estimated Glomerular Filt Rate > 60; Glucose Random 81 mg/dL (60-115); Potassium 4.4 mmol/L (3.3-5.1); Sodium 143 mmol/L (135-145); Total Protein 7.2 g/dL (6.5-8.0)
== END 2024-11-28 07:29 | disposition home or self-care (01) ==
LOC: HO.LAB 07:28
PROVIDERS: PCP Internal Medicine; Visit Provider Internal Medicine
DX: E11.65 Type 2 diabetes mellitus with hyperglycemia (principal); E78.00 Pure hypercholesterolemia, unspecified; I10 Essential (primary) hypertension; Z68.29 Body mass index [BMI] 29.0-29.9, adult
CPT/HCPCS: 36415; 80053; 83036

== ENCOUNTER 2025-01-12 10:19 | Outpatient (REF) | payer MEDICARE, OTHER, SELFPAY ==
--- OUTSIDE RECORDS SUMMARY | 2025-01-12 11:34 | XMS_ITS | Patient Health Record ---
Author Organization [facility] Address [address] [place] [id number] Care Team Providers Care Vet Tech Name Role Phone Jchuy Donna Primary Care Provider UnavailAd Burr Unavailable [phone] Allergies No Known Allergies Reason For Referral No Information Medications Medication SIG (Take, Route, Frequency, Duration) Notes Start Date End Date Status Rosuvastatin Calcium 40 MG Oral for 90 Active Lantus SoloStar 100 UNIT/ML Subcutaneous for 89 Active metFORMIN HCl 1000 MG TAKE 1 TABLET BY M OUTH TWICE DAILY Oral for 90 Active HumaLOG KwikPen 100 UNIT/ML INJECT 15 UNITS UNDER THE SKIN THREE TIMES DAILY Subcutaneous for 88 Active Dulcolax (colon prep) 5 MG take at 3:00 p.m and 7:00p.m. Orally two tablets twice a day for one day for 1 day 12/18/2021 Active MiraLax (colon prep) 17 GM/SCOOP 1 238 Gm bottle mixed with Gatorade or Crystal Light Orally begin at 5:00 p.m. the day before the procedure for 1 day 12/18/2021 Active Aspir-81 Active Latanoprost 0.005 % Ophthalmic for 75 Active Meloxicam 15 MG Oral for 90 Ac tive Immunizations Vaccine Route Administration Date Status Comme nts Influenza Unknown 06/25/2021 Administered Social History Tobacco Use: Social History Observation Description Date Details (start date - stop date) Never Smoker NA - NA Tobacco Use/Smoking Question Answer Notes Patient is a nonsmoker Alcohol Screen Question Answer Notes Did you have a drink contain ing alcohol in the past year? Yes How often did you have a dri nk containing alcohol in the past year? 2 to 4 times a month (2 points) Points 2 Interpretation Negative Section Notes: Nonsmoker; no sig alcohol Nonsmoker; no sig alcohol Problems Problem Type SNOMED Code ICD Code Onset Dates Problem Status W/U Status Risk Notes Problem 056933042 Encounter for screening for malignant neoplasm of colon (Z12.11) Active confirmed Problem 121380475 History of adenomatous polyp of colon (Z86.010) Active confirmed Problem 408691581 Preprocedural examination (Z01.818) Active confirmed Problem History of colon polyps (Z86.010) Active confirmed Problem Diverticulosis of colon (808962998) Diverticulosis of colon (K57.30) Active confirmed Plan Of Treatment Future Test Test Name Order Date COLONOSCOPY 02/24/2017 COLONOSCOPY 12/18/2021 Insurance Providers Payer Name Payer Address Payer Phone Subscriber Number Group Number Insured Name Patient Relationship to Insured Coverage Start Date Coverage End Date [place] [address] [place] [address] [id number] REYNA GRANT Self - patient is the insured [facility] [address] [place] [address] [id number] REYNA GRANT Self - patient is the insured Medical (General) History Medical History History ICD Code NIDDM---uses Metformin daily and prn ins ulin Hypertension Denies [place],,CVA,Lung disease,renal diseas e Seasonal allergies Hyperlipidemia Negative screening colonosco py in November of 2006--only mild sigmoid diverticulosis and small internal hemorrhoids Colonoscopy 05/2017 with small tubular ad enomas removed Surgical History Surgery Date(Month/Year) Left knee
[2025-01-12 13:52] LABS: Estimated Average Glucose 249 mg/dL; Hemoglobin A1C 327.3456 umol/L; Hemoglobin A1c % 10.3 % (<6.0); Total Hemoglobin (HGBA1C) 3682.7745 umol/L
[2025-01-12 13:55] LABS: Alanine Aminotransferase 24 U/L (0-40); Albumin Level 4.2 g/dL (3.5-5.0); Alkaline Phosphatase 120 U/L (39-117); Anion Gap 11 (12-20); Aspartate Amino Transferase 21 U/L (5-37); Bilirubin Total 0.6 mg/dL (0.0-1.0); Blood Urea Nitrogen 12 mg/dL (9-16); Calcium 9.4 mg/dL (8.4-10.2); Carbon Dioxide 32 mmol/L (22-29); Chloride 104 mmol/L (96-108); Estimated Glomerular Filt Rate > 60; Glucose Random 66 mg/dL (60-115); Potassium 4.5 mmol/L (3.3-5.1); Sodium 142 mmol/L (135-145); Total Protein 7.3 g/dL (6.5-8.0)
== END 2025-01-12 10:20 | disposition home or self-care (01) ==
LOC: HO.10HDL 10:19
PROVIDERS: Visit Provider Internal Medicine
DX: E11.65 Type 2 diabetes mellitus with hyperglycemia (principal); E16.1 Other hypoglycemia; E78.00 Pure hypercholesterolemia, unspecified; I10 Essential (primary) hypertension
CPT/HCPCS: 36415; 80053; 83036

== ENCOUNTER 2025-01-19 09:14 | Outpatient (REF) | payer MEDICARE, OTHER, SELFPAY ==
--- NOTE | ~2025-01-19 | XR_ITS ---
EXAMINATION: XR KNEE 3 VIEWS LEFT HISTORY: M25.569 - Pain in unspecified knee COMPARISON: There are no prior studies available for comparison. FINDINGS: Standing AP views of both knees and additional lateral and sunrise patellar views of the left knee are submitted. The bones are osteopenic. There is no fracture or dislocation. There is moderate tricompartmental osteoarthritis, with joint space narrowing and osteophyte formation. The soft tissues are unremarkable. There is no joint effusion. XR/XR knee LT 3V IMPRESSION: Osteopenia. Moderate tricompartmental osteoarthritis. Electronically signed by: Ad De La Torre MD 01/19/2025 11:25 AM EDT
--- OUTSIDE RECORDS SUMMARY | 2025-01-19 09:48 | XMS_ITS | Patient Health Record ---
Author Organization [facility] Address [address] [place] [id number] Care Team Providers Care Vibrating Screen Operator Name Role Phone Jchuy Donna Primary Care Provider UnavailAd Burr Unavailable [phone] Allergies No Known Allergies Reason For Referral [...] Problem Status W/U Status Risk Notes Problem 330264070 Encounter for screening for malignant neoplasm of colon (Z12.11) Active confirmed Problem 821016007 History of adenomatous polyp of colon (Z86.010) Active confirmed Problem 079270021 Preprocedural examination (Z01.818) Active confirmed Problem History of colon polyps (Z86.010) Active confirmed Problem Diverticulosis of colon (093575347) Diverticulosis of colon (K57.30) Active confirmed Plan Of Treatment Future Test Test Name Order Date COLONOSCOPY 02/24/2017 COLONOSCOPY 12/18/2021 Insurance Providers Payer Name Payer Address Payer Phone Subscriber Number Group Number Insured Name Patient Relationship to Insured Coverage Start Date Coverage End Date [place] [address] [place] [address] [phone] [id number] REYNA GRANT Self - patient is the insured [facility] [address] [place] [phone] [id number] REYNA GRANT Self - patient is the insured Medical (General) History Medical History History ICD Code NIDDM---uses Metformin daily and prn ins ulin Hypertension Denies [place],,CVA,Lung disease,renal diseas e Seasonal allergies Hyperlipidemia Negative screening colonosco py in November of 2006--only mild sigmoid diverticulosis and small internal hemorrhoids Colonoscopy 05/2017 with small tubular ad enomas removed Surgical History Surgery Date(Month/Year) Left knee
== END 2025-01-19 09:15 | disposition home or self-care (01) ==
LOC: HO.HOSX 09:14
PROVIDERS: Visit Provider Physician Assistant
DX: M25.562 Pain in left knee (principal); M17.12 Unilateral primary osteoarthritis, left knee
CPT/HCPCS: 73562; 99212

== ENCOUNTER 2025-01-19 10:16 | Outpatient (AMB) | payer MEDICARE, OTHER, SELFPAY ==
--- NOTE | 2025-01-19 10:24 | A.OFFVIS_ITS ---
Vital Signs 01/19/25 10:32 Height 5 ft 3 in Weight 160 lb BMI 28.3 Intake Visit Reasons: New prob LT knee pain Intake Note: Sumanth is a 69 year old male who presents today for a evaluation of his left knee pain. Hx of left knee meniscus repair back in 2006. Patient reports ongoing pain for about ongoing pain for many years. He states that his pain is on the medial aspect of the knee and he stretches his pain goes through the whole knee. Patient mentions when he is walking for a long time his knee tends to lock and unable to bend. He has tried taking oxycodone 5 mg and naproxen for his pinched nerve from Dr. Shah. Allergies No Known Allergies Allergy (Verified 01/19/25 10:30) HPI HPI New prob LT knee pain: Details: Mr. Aolnso is a 69-year-old male who presents to the office today for evaluation of chronic left knee pain. He reports that he has a history of a left knee arthroscopy for partial meniscectomy roughly 10 years ago. He also reports that roughly 5 years ago he was told that he needed a total knee replacement. However at that time he was still working full-time and wished to pursue this after his [place] [facility]. He states that the pain has begun to interfere with his quality of life. He is unable to do the activities that he wants to do. He can not ambulate for any significant amount of time. Of note, the patient does have a significant past medical history of diabetes with a last A1c being 10.3 on 01/12/25. [facility] Medical History (Updated 01/19/25 @ 12:47 by Kat Lou PA-C) HTN (hypertension) Elevated cholesterol Diabetes Surgical History (Updated 01/09/22 @ 14:50 by Liane Zapata RN) H/O colonoscopy Hx of knee surgery Social History (Updated 02/17/23 @ 14:32 by Nestor Gutiérrez) Alcohol intake: current Alcohol intake frequency: a few times a week Patient Tobacco Use Status: Tobacco use Unknown Current occupational status: retired Review of Systems Const All systems reviewed & are unremarkable except as noted in HPI and below Physical Exam Vital Signs: BMI result Body Mass Index 28.3 Const General: cooperative, healthy appearing and no acute distress Resp Effort & Inspection: normal respiratory effort and able to speak in complete sentences Extrem Other: Left knee significant crepitus with range of motion. Range of motion is 0-100 degrees. Tenderness to palpation medial and lateral joint lines. NVI. Assessment & Plan Assessment & Plan (1) Osteoarthritis of left knee: Code(s): M17.12 - Unilateral primary osteoarthritis, left knee Category: Medical Plan Mr. Alonso is a 69-year-old male who presents to the office today for evaluation of chronic left knee pain. He reports that he has a history of a left knee arthroscopy for partial meniscectomy roughly 10 years ago. He also reports that roughly 5 years ago he was told that he needed a total knee replacement. However at that time he was still working full-time and wished to pursue this after his [place] [facility]. He states that the pain has begun to interfere with his quality of life. He is unable to do the activities that he wants to do. He can not ambulate for any significant amount of time. Of note, the patient does have a significant past medical history of diabetes with a last A1c being 10.3 on 01/12/25. While in the office today, we discussed the role of physical therapy, cortisone injections and total knee arthroplasty. The patient had a past A1c on January 13, 2020 01/24/2010 0.3 therefore cortisone injection was deferred at this time. Patient reports that his PCP has been giving him injectables to manage his diabetes. However, the patient reports that he has not been taking his medications as directed due to pain with administration. Patient is interested in moving forward with the process in obtaining a left total knee arthroplasty. I did discuss with the patient that his A1c must be below 8 in order to proceed safely and lower the risk of complications postoperatively. Our nurse navigator was able to meet with the patient as well to discuss this in more detail. At this time the patient is not optimized to undergo a total joint arthroplasty. Therefore he will continue working with his PCP, we have his information to continue monitoring his A1c. He will follow up with Dr. Martin after he is more optimized to undergo surgical intervention. X-rays of the left knee which were obtained while in the office today and were reviewed by me, Kat Lou PA-C, revealed significant osteoarthritis. Orders: Orders XR knee LT 3V Today M25.569 - Pain in unspecified knee Coding Level of Care Code New Pt Level 4 (81074) Diagnoses Osteoarthritis of left knee M17.12
[2025-01-19 10:32] VITALS: BMI 28.3
== END 2025-01-19 11:22 | disposition home or self-care (01) ==
PROVIDERS: PCP Internal Medicine; Visit Provider Physician Assistant
DX: M17.12 Unilateral primary osteoarthritis, left knee (principal)
CPT/HCPCS: 99214

== ENCOUNTER → 2025-01-19 10:17 | Outpatient (BNV) | payer MEDICARE, OTHER, SELFPAY | PROVIDERS: Visit Provider Radiology Diagnostic Radiology | DX: M85.88 Other specified disorders of bone density and structure, other site (principal) | CPT/HCPCS: 73562 ==

== ENCOUNTER 2025-03-01 07:40 | Outpatient (REF) | payer MEDICARE, OTHER, SELFPAY ==
--- OUTSIDE RECORDS SUMMARY | 2025-03-01 07:43 | XMS_ITS | Patient Health Record ---
Author Organization [facility] Address [address] [place] [address] Care Team Providers Care Laminating Machine Operator Name Role Phone Jchuy Donna Primary Care Provider UnavailAd Burr Unavailable [phone] Allergies No Known Allergies Reason For Referral [...] Problem Status W/U Status Risk Notes Problem 494611497 Encounter for screening for malignant neoplasm of colon (Z12.11) Active confirmed Problem 430099071 History of adenomatous polyp of colon (Z86.010) Active confirmed Problem 299425912 Preprocedural examination (Z01.818) Active confirmed Problem History of polyp of colon (situation) (191325281) History of colon polyps (Z86.010) Active confirmed Problem Diverticulosis of colon (071409195) Diverticulosis of colon (K57.30) Active confirmed Plan Of Treatment Future Test Test Name Order Date COLONOSCOPY 02/24/2017 COLONOSCOPY 12/18/2021 Insurance Providers Payer Name Payer Address Payer Phone Subscriber Number Group Number Insured Name Patient Relationship to Insured Coverage Start Date Coverage End Date [place] OF [place] [address] [place] [address] [id number] REYNA GRANT Self - patient is the insured [facility] [address] [place] [phone] [id number] REYNA GRANT Self - patient is the insured Medical (General) History Medical History History ICD Code NIDDM---uses Metformin daily and prn ins ulin Hypertension Denies [place],,CVA,Lung disease,renal diseas e Seasonal allergies Hyperlipidemia Negative screening colonosco py in November of 2006--only mild sigmoid diverticulosis and small internal hemorrhoids Colonoscopy 05/2017 with small tubular ad enomas removed Surgical History Surgery Date(Month/Year) Left knee
[2025-03-01 08:25] LABS: Estimated Average Glucose 232 mg/dL; Hemoglobin A1c % 9.7 % (<6.0)
[2025-03-01 08:36] LABS: Alanine Aminotransferase 26 U/L (0-40); Albumin Level 4.4 g/dL (3.5-5.0); Alkaline Phosphatase 95 U/L (39-117); Anion Gap 12 (12-20); Aspartate Amino Transferase 31 U/L (5-37); Blood Urea Nitrogen 12 mg/dL (9-16); Carbon Dioxide 26 mmol/L (22-29); Chloride 109 mmol/L (96-108); Estimated Glomerular Filt Rate > 60; Glucose Random 64 mg/dL (60-115); Potassium 4.2 mmol/L (3.3-5.1); Sodium 143 mmol/L (135-145); Total Protein 6.7 g/dL (6.5-8.0)
== END 2025-03-01 07:41 | disposition home or self-care (01) ==
LOC: HO.LAB 07:40
PROVIDERS: PCP Internal Medicine; Visit Provider Internal Medicine
DX: E16.1 Other hypoglycemia (principal); E78.00 Pure hypercholesterolemia, unspecified; E11.65 Type 2 diabetes mellitus with hyperglycemia; I10 Essential (primary) hypertension
CPT/HCPCS: 36415; 80053; 83036

== ENCOUNTER 2025-06-01 11:30 | Outpatient (REF) | payer MEDICARE, OTHER, SELFPAY ==
[2025-06-01 13:00] LABS: Alanine Aminotransferase 17 U/L (0-40); Albumin Level 4.5 g/dL (3.5-5.0); Alkaline Phosphatase 108 U/L (39-117); Anion Gap 12 (12-20); Aspartate Amino Transferase 21 U/L (5-37); Blood Urea Nitrogen 13 mg/dL (9-16); Calcium 9.3 mg/dL (8.4-10.2); Carbon Dioxide 31 mmol/L (22-29); Chloride 106 mmol/L (96-108); Estimated Glomerular Filt Rate > 60; Potassium 4.6 mmol/L (3.3-5.1); Sodium 144 mmol/L (135-145); Total Protein 7.6 g/dL (6.5-8.0)
[2025-06-01 13:02] LABS: Hemoglobin A1C 341.5165 umol/L; Total Hemoglobin (HGBA1C) 3601.9147 umol/L
--- OUTSIDE RECORDS SUMMARY | 2025-06-01 16:20 | XMS_ITS | Patient Health Record ---
Author Organization [facility] Address [address] [place] [id number] Care Team Providers Care Advertising Assistant Manager Name Role Phone Jchuy Donna Primary Care Provider UnavailAd Burr Unavailable [phone] Allergies No Known Allergies Reason For Referral [...] Problem Status W/U Status Risk Notes Problem [id number] Encounter for screening for malignant neoplasm of colon (Z12.11) Active confirmed Problem 477021977 History of adenomatous polyp of colon (Z86.010) Active confirmed Problem 464583939 Preprocedural examination (Z01.818) Active confirmed Problem History of polyp of colon (situation) (790249825) History of colon polyps (Z86.010) Active confirmed Problem Diverticulosis of colon (571572104) Diverticulosis of colon (K57.30) Active confirmed Plan Of Treatment Future Test Test Name Order Date COLONOSCOPY 02/24/2017 COLONOSCOPY 12/18/2021 Insurance Providers Payer Name Payer Address Payer Phone Subscriber Number Group Number Insured Name Patient Relationship to Insured Coverage Start Date Coverage End Date [place] [address] [place] [address] [phone] [id number] REYNA GRANT Self - patient is the insured [facility] [address] [place] [address] [id number] REYNA GRANT Self - patient is the insured Medical (General) History Medical History History ICD Code NIDDM---uses Metformin daily and prn ins ulin Hypertension Denies [place],,CVA,Lung disease,renal diseas e Seasonal allergies Hyperlipidemia Negative screening colonosco py in November of 2006--only mild sigmoid diverticulosis and small internal hemorrhoids Colonoscopy 05/2017 with small tubular ad enomas removed Surgical History Surgery Date(Month/Year) Left knee
== END 2025-06-01 11:31 | disposition home or self-care (01) ==
LOC: HO.10HDL 11:30
PROVIDERS: Visit Provider Internal Medicine
DX: E11.65 Type 2 diabetes mellitus with hyperglycemia (principal); E78.00 Pure hypercholesterolemia, unspecified; I10 Essential (primary) hypertension; K21.9 Gastro-esophageal reflux disease without esophagitis; M17.0 Bilateral primary osteoarthritis of knee
CPT/HCPCS: 36415; 80053; 83036

== ENCOUNTER 2025-06-22 13:58 | Outpatient (REF) | payer MEDICARE, OTHER, SELFPAY | END 2025-06-22 13:59 | disposition home or self-care (01) | LOC: HO.LAB 13:58 | PROVIDERS: PCP Internal Medicine; Visit Provider Internal Medicine Endocrinology, Diabetes & Metabolism | DX: E11.65 Type 2 diabetes mellitus with hyperglycemia (principal); Z79.84 Long term (current) use of oral hypoglycemic drugs; Z79.4 Long term (current) use of insulin | CPT/HCPCS: 36415; 82947; 86341; 99202 ==

== ENCOUNTER 2025-06-22 13:58 | Outpatient (AMB) | payer MEDICARE, OTHER, SELFPAY ==
--- NOTE | 2025-06-22 14:14 | MHC.OFFVIS ---
Vital Signs 06/22/25 14:17 Height 5 ft 3 in Weight 162 lb 11.218 oz BMI 28.8 BP 132/74 Blood Pressure Location Lt brachial Position Sitting Pulse 66 Pulse Source Pulse Oximeter Pulse Oximetry (%) 97 Oxygen Delivery Method Room Air Intake Visit Reasons: T2DM A1C 10.8% Intake Note: New patient externally referred for T2DM. Patient receives Dexcom G7 through: Mail order, unsure what company and stated he will call the office with that information Last Diabetic Eye exam: Was seen within the year, has yearly appointment Last Podiatry Visit: Does not see a Finisher Card Tender Random Glucose: 143 mg/dl Hgb A1C: 10.8% 06/01/2025. Director Of Physical Security Required: No Accompanied by: Self / Same As Patient Allergies No Known Allergies Allergy (Verified 06/22/25 14:18) Medication List - Last Reconciled 06/22/25 by Ad Mills MD amlodipine 1 tab PO DAILY aspirin 1 tab PO DAILY blood-glucose sensor (Dexcom G7 Sensor device) As directed brimonidine 0.2% 1 drp ophthalmic (eye) BID ezetimibe 10 mg PO DAILY insulin glargine (Lantus Solostar U-100 Insulin) units subcut insulin lispro (Humalog KwikPen (U-100) Insulin) 15 units subcut TID latanoprost 0.005% 1 drp ophthalmic (eye) BEDTIME meloxicam 1 tab PO DAILY metformin 1 tab PO BID rosuvastatin 1 tab PO DAILY sertraline 1 tab PO DAILY HPI Comments Details: 70 YO M who is seen in consultation for T2DM at the request of PCP. Initially diagnosed with T2DM in 5 yrs . Never saw endo before Took Trulicity in past but stopped for unclear reasons Was initially started on treatment with metformin . Current regimen Lantus 60 units HS Humalog . 20 units TID Metformin 1000 mg BID Per the CGM Dexcom CGMS is active 80 % of time . data the patient's predicted A1C is 8.6% which is compared to the patients previous A1C [] dated []. Avg glucose is 223 . Variability of 42.1 The patient's blood sugars were in target 35% of the time, above target 62% of the time, and below target 3% of the time Reports low sugars after meals . Treats lows with cookies, soda . Checks sugar after to ensure it is rising. Treats according to waits 1 hr . No Family history of T2DM Has eyes checked yearly, last eye exam 12/2024 , denies retinopathy. Denies neuropathy, Not , sees podiatry. Denies nephropathy, Not on NANCY/ARB. Has HLD, on statin. Denies CAD. Not Had diabetes education. [facility] Medical History (Updated 06/22/25 @ 14:30 by Ad Mills MD) Uncontrolled type 2 diabetes mellitus with hyperglycemia HTN (hypertension) Elevated cholesterol Diabetes Surgical History H/O colonoscopy Hx of knee surgery Family History Mother No problems noted. Social History Alcohol intake: current Alcohol intake frequency: a few times a week Patient Tobacco Use Status: Tobacco use Unknown Current occupational status: retired Physical Exam Vital Signs: BMI result Body Mass Index 28.8 Absence of Cushingoid features. Absence of acromegalic features. Neck exam reveals nl size thyroid about 15 gms. No thyroid nodules palpable. No carotid bruits present. Lungs CTA. Heart S1 S2, Reg R/R. No M/R/ G. Skin exam reveals absence of vitiligo or acanthosis nigricans. Abdominal exam reveals Soft NT/ND with NA BS. No organomegaly present. Neck Other: . Extrem Other: Visual exam of foot performed. No ulcerations or open lesions. No onchomycosis, no callouses.Pulses 2 + distally Sensation intact to monofilament exam. Vibratory sensation sensed is intact with 128 Hz tuning fork Assessment & Plan Assessment & Plan (1) Uncontrolled type 2 diabetes mellitus with hyperglycemia: Code(s): E11.65 - Type 2 diabetes mellitus with hyperglycemia Category: Medical Plan: This is a 70-year-old male with a history of type 2 diabetes being treated with metformin and basal-bolus insulin with poor glycemic control and no known microvascular macrovascular complications. He appears to be having post-dinner hypoglycemia with increases after midnight to morning and persistent hyperglycemia throughout the day Plan is to increase Lantus to 70 units and decrease the Humalog to 10 units aC . We will check anti-juanita 65 antibodies to rule out type 1 diabetes AMBAR . If antibodies are negative, We will talk to the patient about initiating a G LP 1. We will send to diabetic education and nutritional referral. We will also prescribe Baqsimi. Told the patient to obtain a medical alert bracelet. Also sent the patient to podiatry referral Talk to the patient at length about the correlation of poor glycemic control with development of progression of complications Orders: Orders Glutamic acid decarboxylase Ab Today E11.65 - Type 2 diabetes mellitus with hyperglycemia Referrals Podiatry Referral E11.65 - Type 2 diabetes mellitus with hyperglycemia Diabetes Education Referral E11.65 - Type 2 diabetes mellitus with hyperglycemia Nutrition/Dietitian Referral E11.65 - Type 2 diabetes mellitus with hyperglycemia Medications: New Baqsimi 3 mg/actuation (glucagon) 3 mg intranasal ONCE 2 ea 4RF NS Coding Level of Care Code New Pt Level 5 (78285) Complex EM visit Add On G2211 Diagnoses Uncontrolled type 2 diabetes mellitus with hyperglycemia E11.65
[2025-06-22 14:17] VITALS: BP 132/74; PULSE 66; O2SAT 97; BMI 28.8
[2025-06-22 15:01] LABS: Glucose, Whole Blood 143 mg/dL (60-115)
--- OUTSIDE RECORDS SUMMARY | 2025-06-22 17:46 | XMS_ITS | Patient Health Record ---
Author Organization [facility] Address [address] [place] [id number] Care Team Providers Care Audiology Technician Name Role Phone Jchuy Donna Primary Care Provider UnavaildA Burr Unavailable [phone] Allergies No Known Allergies Reason For Referral No Information Medications Medication SIG (Take, Route, Frequency, Duration) Notes Start Date End Date Status Rosuvastatin Calcium 40 MG Oral; Duration: 90 Active Lantus SoloStar 100 UNIT/ML Subcutaneous ; Duration: 89 Active metFORMIN HCl 1000 MG TAKE 1 TABLET BY M OUTH TWICE DAILY Oral; Duration: 90 Active HumaLOG KwikPen 100 UNIT/ML INJECT 15 UN ITS UNDER THE SKIN THREE TIMES DAILY Subcutaneous; Duration: 88 Active Dulcolax (colon prep) 5 MG take at 3:00 p.m and 7:00p.m. Orally two tablets twice a day for one day; Duration: 1 day 12/18/2021 Active MiraLax (colon prep) 17 GM/SCOOP 1 238 Gm bottle mixed with Gatorade or Crystal Light Orally begin at 5:00 p.m. the day before the procedure; Duration: 1 day 12/18/2021 Active Aspir-81 Active Latanoprost 0.005 % Ophthalmic; Duration: 75 Active Meloxicam 15 MG Oral; Duration: 90 Active Immunizations Vaccine Route Administration Date Status Comme [...] Problem Status W/U Status Risk Notes Problem Screening for malignant neoplasm of colon (195214082) Encounter for screening for malignant neoplasm of colon (Z12.11) Active confirmed Problem History of adenomatous polyp of colon (788652145) History of adenomatous polyp of colon (Z86.010) Active confirmed Problem Preprocedural examination (655582781358248) Preprocedural examination (Z01.818) Active confirmed Problem History of polyp of colon (situation) (793077411) History of colon polyps (Z86.010) Active confirmed Problem Diverticulosis of colon (615167748) Diverticulosis of colon (K57.30) Active confirmed Plan Of Treatment Future Test Test Name Order Date COLONOSCOPY 02/24/2017 COLONOSCOPY 12/18/2021 Insurance Providers Payer Name Payer Address Payer Phone Subscriber Number Group Number Insured Name Patient Relationship to Insured Coverage Start Date Coverage End Date MED[place]ARE OF [place] [address] [place] [address] [phone] [id number] REYNA GRANT Self - patient is the insured [facility] [address] [place] [address] [id number] REYNA GRANT Self - patient is the insured Medical (General) History Medical History History ICD Code NIDDM---uses Metformin daily and prn ins ulin Hypertension Denies [place],,CVA,Lung disease,renal diseas e Seasonal allergies Hyperlipidemia Negative screening colonosco py in November of 2006--only mild sigmoid diverticulosis and small internal hemorrhoids Colonoscopy 05/2017 with small tubular ad enomas removed Surgical History Surgery Date(Month/Year) Left knee
== END 2025-06-22 14:59 | disposition home or self-care (01) ==
LOC: HO.ENCR 13:59
PROVIDERS: PCP Internal Medicine; Visit Provider Internal Medicine Endocrinology, Diabetes & Metabolism
DX: E11.65 Type 2 diabetes mellitus with hyperglycemia (principal)
CPT/HCPCS: 99204; G2211

== ENCOUNTER 2025-07-04 11:06 | Outpatient (AMB) | payer MEDICARE, OTHER, SELFPAY ==
[2025-07-04 11:27] VITALS: BMI 28.7
--- NOTE | 2025-07-04 11:27 | A.OFFVIS_ITS ---
Vital Signs 07/04/25 11:27 Height 5 ft 3 in Weight 162 lb BMI 28.7 Intake Visit Reasons: Type 2 diabetes mellitus with hyperglycemia Intake Note: Sumanth is a 70 year old male who presents to the office today as a new patient visit referred by his Liner Machine Operator Helper Dr. Mills for Type 2 diabetes mellitus with hyperglycemia. Pt states his glucose is currently at 223 and his last reported A1C was 10.8. he notes occasional numbness and tingling in his toes with no burning. He reports no history of amputation or wounds to his foot however he mentions while at work he dropped an object on his toes and believes it may have caused his toes to grow fungus. Allergies No Known Allergies Allergy (Verified 07/04/25 11:29) HPI HPI Type 2 diabetes mellitus with hyperglycemia: Details: 70-year-old male with past medical history of diabetes mellitus type 2 on insulin, cervical radiculopathy, and left knee pain presents for annual diabetic foot evaluation. Patient endorses bilateral feet burning and tingling which has been present for several years. Denies any other pains to his feet. Complains of discolored hallux toenails bilaterally. He is on insulin and is using a CGM, planned for insulin pump soon. States his sugar currently is ranging from the 170 to 220 range. [facility] Medical History (Updated 07/04/25 @ 12:26 by Arcenio Leroy DPM) Uncontrolled type 2 diabetes mellitus with hyperglycemia HTN (hypertension) Elevated cholesterol Diabetes Surgical History H/O colonoscopy Hx of knee surgery Family History Mother No problems noted. Social History Alcohol intake: current Alcohol intake frequency: a few times a week Patient Tobacco Use Status: Tobacco use Unknown Current occupational status: retired Review of Systems Const All systems reviewed & are unremarkable except as noted in HPI and below Physical Exam Vital Signs: BMI result Body Mass Index 28.7 Extrem Other: *Bilateral Lower Extremity Focused Diabetic Foot Exam Vascular: DP/PT 2/4, CFT<3s to digits, TG warm to cool, no pedal edema, pedal hair absent Derm: Skin: Annular scaling plantar feet bilaterally Interdigital spaces: Clear, no maceration or fungal infection. Nails: Dystrophic thickened elongated toenails times 10, bilateral hallux nail with subungual debris. Neuro: Protective sensation grossly diminished to bilateral lower extremities. Msk: Deformities: No evidence of hammertoes, bunions, Charcot changes, or other structural abnormalities. Muscle strength: 5/5 in all muscle groups. Gait: Normal, no antalgic or steppage gait observed. Footwear Assessment: Shoes inspected; appropriate fit, no excessive wear, or foreign objects noted. Assessment & Plan Assessment & Plan (1) Uncontrolled type 2 diabetes mellitus with hyperglycemia: Code(s): E11.65 - Type 2 diabetes mellitus with hyperglycemia Category: Medical Plan: Risk Stratification: No current ulceration, infection, or pre-ulcerative lesion. No plans for further testing/referrals for non-invasive vascular studies. May plan for Qutenza treatment for peripheral neuropathy. Patient is at low risk for diabetic foot complications at this time. Recommendations: Continue routine foot care and daily self-inspection. Recommend moisturizing daily. Recommend supportive proper fitting shoe-wear. The patient may require diabetic shoes in the future. Reinforced diabetic foot education and risks from peripheral neuropathy. (2) Tinea unguium: Code(s): B35.1 - Tinea unguium Category: Medical Plan: * debrided elongated nails x10 Orders: Orders AMB Debridement/Avulsion Podiatry 2 Months B35.1 - Tinea unguium Coding Level of Care Code New Pt Level 4 (19157) Diagnoses Uncontrolled type 2 diabetes mellitus with hyperglycemia E11.65 Tinea unguium B35.1 Time Spent (min) 25
== END 2025-07-04 12:08 | disposition home or self-care (01) ==
LOC: HO.HPODS 11:07
PROVIDERS: PCP Internal Medicine; Visit Provider Student in an Organized Health Care Education/Training Program
DX: E11.65 Type 2 diabetes mellitus with hyperglycemia (principal); B35.1 Tinea unguium
CPT/HCPCS: 99204

== ENCOUNTER → 2025-07-04 11:06 | Outpatient (BNVA) | payer MEDICARE, OTHER, SELFPAY | PROVIDERS: PCP Internal Medicine; Visit Provider Student in an Organized Health Care Education/Training Program | DX: E11.65 Type 2 diabetes mellitus with hyperglycemia (principal); B35.1 Tinea unguium; Z79.4 Long term (current) use of insulin | CPT/HCPCS: 99202 ==

== ENCOUNTER 2025-07-12 09:17 | Outpatient (AMB) | payer MEDICARE, OTHER, SELFPAY ==
--- NOTE | 2025-07-12 09:32 | MHC.AMDMED ---
Intake Intake Visit Reasons: T2DM Retail Salesperson Required: No Accompanied by: Self / Same As Patient Allergies No Known Allergies Allergy (Verified 07/04/25 11:29) HPI Comprehensive Diabetes Asmnt Most Recent Diabetes Results: Microalb/Creat Ratio, (<30) 13.9 ug/mg cr 09/01/24 Cholesterol, (<200) 141 mg/dL 09/01/24 HDL Cholesterol, (>40) 51 mg/dL 09/01/24 Triglycerides, (<150) 88 mg/dL 09/01/24 Creatinine, (0.5-1.4) 0.64 mg/dL 06/01/25 BUN, (9-16) 13 mg/dL 06/01/25 Sodium, (135-145) 144 mmol/L 06/01/25 Potassium, (3.3-5.1) 4.6 mmol/L 06/01/25 Chloride, (96-108) 106 mmol/L 06/01/25 Carbon Dioxide, (22-29) 31 mmol/L H 06/01/25 Calcium, (8.4-10.2) 9.3 mg/dL 06/01/25 AST, (5-37) 21 U/L 06/01/25 ALT, (0-40) 17 U/L 06/01/25 Total Protein, (6.5-8.0) 7.6 g/dL 06/01/25 Albumin, (3.5-5.0) 4.5 g/dL 06/01/25 [facility] Medical History (Updated 07/04/25 @ 12:26 by Arcenio Leroy DPM) Uncontrolled type 2 diabetes mellitus with hyperglycemia HTN (hypertension) Elevated cholesterol Diabetes Surgical History H/O colonoscopy Hx of knee surgery Family History Mother No problems noted. Social History Alcohol intake: current Alcohol intake frequency: a few times a week Patient Tobacco Use Status: Tobacco use Unknown Current occupational status: retired Assessment & Plan Assessment & Plan (1) Uncontrolled type 2 diabetes mellitus with hyperglycemia: Code(s): E11.65 - Type 2 diabetes mellitus with hyperglycemia Plan: Diabetes self-management education and support participation record Assessment/scale: 1= needs instructed? 2= needs review? 3= comprehend keep point? 4= demonstrates understanding/ competent? NC= Not Covered Topics Learning Objective: Initial visit Initial or post srvc Initial or post srvc Initial or post srvc Initial or post srvc Initial or post srvc Post srvc Comments Pre Edu-assessment/plan Outcome or reassess Outcome or reassess Outcome or reassess Outcome or reassess Outcome or reassess Outcome or reassess Diabetes pathophysiology 1 Healthy eating 1 Being active 1 Taking medication 1 Monitoring glucose 2 Acute complication 1 Chronic complicated 1 Lifestyle and healthy coping 1 Diabetes distress in support 1 ?Diabetes pathophysiology: ?Defined diabetes med identify own type of diabetes; list 3 options for treating diabetes Healthy eating: ?Described effect of type, amount and ?timing of food on blood glucose; list 3 methods for planning meal Being active: ?State effect of exercise on blood glucose level Taking medication: ?State effect of diabetes medications on diabetes; name diabetes medications taking, action and side effects Monitoring glucose: ?Identify recommended blood glucose targets and personal target Acute complication: ?List symptoms and treatment of hyper and hypoglycemia, DKA, sick day guidelines and guidelines for severe weather or situations of crisis and diabetes supply manage Chronic complication: ?To find the relationship of blood glucose levels to long-term complications of diabetes in screening and preventative measures Lifestyle and healthy coping: ?Described lifestyle and healthy coping strategies to rule out diabetes self-management Diabetes to stress and support: ?Recognize Diabetes to stress and be able to identified support options Learning objectives: The patient was provided with verbal and written education on the following topics as outlined below. The patient met all learning objectives and was able to verbalize understanding and provide teach back of education topics discussed . The patient was provided with the opportunity to ask questions and all questions were answered. Patient Assessment Assess patient education level/literacy/barriers, patient reports he is diagnosed with diabetes over 10 years ago. Does not recall ever receiving Diabetes Education Patient's last A1c 10.9% on 06/01/2025 Patient is currently on metformin b.i.d.(no mg listed in med list) Lantus 70 units daily Humalog 10 units prior to meals Patient reported that he has been taking Humalog after meals when his glucose levels are high, varying the doses of Humalog which may be contributing to his postprandial hypoglycemia Instructed patient at today's visit to take Humalog 15 minutes before meals Discussed action of Humalog and Lantus at today's visit Patient questions/concerns, patient is interested in learning how to carb count, briefly discussed insulin pump therapy at today's visit. He is experiencing 6% hypoglycemia on Dexcom data. Reports that he eats a piece of fruit, when his glucose level is low. Reviewed how to treat hypoglycemia: Hypoglycemia or blood glucose under 70 mg/dL use the rule of 15's: If you have your blood glucose meter test your blood glucose, if you do not have your meter still follow below instruction: Keep quick-sugar foods with you at all times.? Take 15 grams of fast acting carbohydrates. Examples are 4 ounces of fruit juice or regular soda pop, 8 ounces fat-free milk, 1 tablespoon of table sugar, honey or corn syrup, jam, one miniature box of raisins, 7-8 gumdrops or Life Savers candy, 4 glucose tablets, and glucose gel.? Retest blood glucose in 15 minutes, if blood glucose is still under 80 mg/dL,repeat rule of 15's. If blood glucose is under 50, take 30 grams of fast acting carbohydrates If you are having hypoglycemia, or insulin reaction, more that a few times a week, call MD or conservation educator F/U BG check What is Diabetes? Pathophysiology How the body produces and uses insulin Identify type of DM Risk factors Signs of Diabetes Brief overview of Diabetes Management Monitoring blood sugar Following a meal plan Regular exercise Maintaining a healthy weight Taking medication as needed Members of the care team (PCP, RN, MA, RD, CDE, research assoc) Blood glucose monitoring When/how often to test Target blood sugar ranges Introduction to Nutrition Importance of healthy diet in managing DM Diet is personalized to individual preference Review patient?s regular diet/food preferences Who prepares meals/does food shopping/ Dining out?/ Barriers? How diet effects glucose Eating 3 balanced meals a day with small, healthy snacks between meals Review food groups Carbohydrates: What is a carbohydrate/Which food/food groups are considered carbohydrates Effect of carbohydrates on blood glucose Portion sizes Reading food labels Basic carb counting (if applicable per nursing assessment) Plate method Meal planning Recommendations: Follow plate method, consistent carbs and read nutritional labels. Smart Goal: Patient will keep meals from 45-60 g of carbohydrate, until he returns in 2 weeks, for carb counting Education Educational Materials: The patient was provided with the following written educational materials: Planning Healthy Meals Handout Patient Response to instructions: Comprehension of Instructions: Fair Readiness to make changes: Contemplation How confident they feel about making changes: Positive Portions of this note were created using voice recognition software, please excuse any words or phrases that may have been misinterpreted. Patient Instructions: Include regular daily activity. ADA recommends 30 minutes of exercise 5 days a week. Weight loss talk to PCP or Infrastructure Solutions Architect before starting new plan. Test blood sugar as directed; Fasting and 2hpp largest meal. Watch trends in results. Utilize results and to assess how food, physical activity and medications affect blood sugar results. Bring glucometer or CGM to next visit. Be knowledgeable about diabetes medication, its action, side effects, efficacy, toxicity, prescribed dosage, appropriate timing and frequency of administration, effect of missed and delayed doses and instructions for storage, travel and safety. Problem solving techniques to monitor hypo/hyperglycemia episodes and treatments. Reduce risk reduction behaviors, smoking cessation, regular eye, foot and dental examinations. Coding Level of Care Code Est Pt Level 1 (52497) Diagnoses Uncontrolled type 2 diabetes mellitus with hyperglycemia E11.65
--- OUTSIDE RECORDS SUMMARY | 2025-07-12 10:09 | XMS_ITS | Patient Health Record ---
Author Organization [facility] Address [address] [place] [id number] Care Team Providers Care Lease Picker Name Role Phone Jchuy Donna Primary Care Provider UnavailAd Burr Unavailable [phone] Allergies No Known Allergies Reason For Referral [...] Problem Screening for malignant neoplasm of colon (211317785) Encounter for screening for malignant neoplasm of colon (Z12.11) Active confirmed Problem History of adenomatous polyp of colon (473042327) History of adenomatous polyp of colon (Z86.010) Active confirmed Problem Preprocedural examination (889638091945907) Preprocedural examination (Z01.818) Active confirmed Problem History of polyp of colon (situation) (861710811) History of colon polyps (Z86.010) Active confirmed Problem Diverticulosis of colon (174848964) Diverticulosis of colon (K57.30) Active confirmed Plan Of Treatment Future Test Test Name Order Date COLONOSCOPY 02/24/2017 COLONOSCOPY 12/18/2021 Insurance Providers Payer Name Payer Address Payer Phone Subscriber Number Group Number Insured Name Patient Relationship to Insured Coverage Start Date Coverage End Date MED[place]ARE OF [place] [address] [place] [address] [id number] REYNA GRANT Self - patient is the insured [facility] [address] [place] [address] [id number] REYNA GRANT Self - patient is the insured Medical (General) History Medical History History ICD Code NIDDM---uses Metformin daily and prn ins ulin Hypertension Denies [place],,CVA,Lung disease,renal diseas e Seasonal allergies Hyperlipidemia Negative screening colonosco py in November of 2006--only mild sigmoid diverticulosis and small internal hemorrhoids Colonoscopy 05/2017 with small tubular ad enomas removed Surgical History Surgery Date(Month/Year) Left knee
== END 2025-07-12 10:20 | disposition home or self-care (01) ==
LOC: HO.ENCR 09:17
PROVIDERS: PCP Internal Medicine; Visit Provider Registered Nurse Diabetes Educator
DX: E11.65 Type 2 diabetes mellitus with hyperglycemia (principal)

== ENCOUNTER → 2025-07-12 09:17 | Outpatient (BNVA) | payer MEDICARE, OTHER, SELFPAY | PROVIDERS: PCP Internal Medicine; Visit Provider Registered Nurse Diabetes Educator | DX: E11.65 Type 2 diabetes mellitus with hyperglycemia (principal); Z79.4 Long term (current) use of insulin; Z79.84 Long term (current) use of oral hypoglycemic drugs; I10 Essential (primary) hypertension; E78.5 Hyperlipidemia, unspecified; F10.10 Alcohol abuse, uncomplicated | CPT/HCPCS: 99211 ==

== ENCOUNTER 2025-07-26 10:51 | Outpatient (AMB) | payer MEDICARE, OTHER, SELFPAY ==
--- NOTE | 2025-07-26 11:39 | A.OFFVIS_ITS ---
Intake Intake Visit Reasons: 60 min Carb counting Allergies No Known Allergies Allergy (Verified 07/04/25 11:29) HPI Comprehensive Diabetes Asmnt Most Recent Diabetes Results: 2 Microalb/Creat Ratio, (<30) 13.9 ug/mg cr 09/01/24 Cholesterol, (<200) 141 mg/dL 09/01/24 HDL Cholesterol, (>40) 51 mg/dL 09/01/24 Triglycerides, (<150) 88 mg/dL 09/01/24 Creatinine, (0.5-1.4) 0.64 mg/dL 06/01/25 BUN, (9-16) 13 mg/dL 06/01/25 Sodium, (135-145) 144 mmol/L 06/01/25 Potassium, (3.3-5.1) 4.6 mmol/L 06/01/25 Chloride, (96-108) 106 mmol/L 06/01/25 Carbon Dioxide, (22-29) 31 mmol/L H 06/01/25 Calcium, (8.4-10.2) 9.3 mg/dL 06/01/25 AST, (5-37) 21 U/L 06/01/25 ALT, (0-40) 17 U/L 06/01/25 Total Protein, (6.5-8.0) 7.6 g/dL 06/01/25 Albumin, (3.5-5.0) 4.5 g/dL 06/01/25 [facility] Medical History (Updated 07/04/25 @ 12:26 by Arcenio Leroy DPM) Uncontrolled type 2 diabetes mellitus with hyperglycemia HTN (hypertension) Elevated cholesterol Diabetes Surgical History H/O colonoscopy Hx of knee surgery Family History Mother No problems noted. Social History Alcohol intake: current Alcohol intake frequency: a few times a week Patient Tobacco Use Status: Tobacco use Unknown Current occupational status: retired Assessment & Plan Assessment & Plan (1) Uncontrolled type 2 diabetes mellitus with hyperglycemia: Code(s): E11.65 - Type 2 diabetes mellitus with hyperglycemia Plan: Pump Assessment: Type of DM: type 2 Dx at age: 65 Previous DKA: no Current Insulin Rx: MDI Patient takes insulin as prescribed: Yes Patient? checks BG Dexcom G7 sensor Downloaded meter today Percentage of hypoglycemia has improved from 6% 3 weeks ago to 2% for the last 14 days Patient? reports glycemic control as: Average Most recent Hgb A1C: 10.8% on 06/01/2025 Frequency of low B-3 times weekly Low BG treatment: Fruit juice Frequency of high BG: Daily Does patient check Ketones? Will discuss at next visit Has pt been on a pump in the past? no Reviewed insulin pump basics today with Patient. Explained pros and cons of insulin pumps. Showed pt various pumps, infusion sets, and cgms currently available. Reviewed need to wear pump 24/ and need to change infusion set every 3 days. Also stressed importance of frequent BG checks, 4x daily minimum or use pump that is integrated with CGM.? TDD:85 units Pt is interested in the iLet Patient demonstrated motivation for continued insulin pump education and understands the need to complete education prior to starting insulin pump for best outcome. Portions of this note were created using voice recognition software, please excuse any words or phrases that may have been misinterpreted. Patient Instructions: Reduce Lantus from 70 units to 64 units daily Follow-up with special educator in 3 weeks for pre pump education Coding Level of Care Code Est Pt Level 1 (75247) Diagnoses Uncontrolled type 2 diabetes mellitus with hyperglycemia E11.65
--- OUTSIDE RECORDS SUMMARY | 2025-07-26 21:25 | XMS_ITS | Patient Health Record ---
Author Organization [facility] Address [address] [place] [address] Care Team Providers Care Meat Molder Name Role Phone Jchuy Donna Primary Care Provider UnavailAd Burr Unavailable [phone] Allergies No Known Allergies Reason For Referral No Information Medications Medication SIG (Take, Route, Frequency, Duration) Notes Start Date End Date Status Rosuvastatin Calcium 40 MG Tablet Oral; Duration: 90 Active Lantus SoloStar 100 UNIT/ML Solution Pen-injector Subcutaneous; Duration: 89 Active metFORMIN HCl 1000 MG Tablet TAKE 1 TABLET BY MOUTH TWICE DAILY Oral; Duration: 90 Active HumaLOG KwikPen 100 UNIT/ML Solution Pen-injector INJECT 15 UNITS UNDER THE SKIN THREE TIMES DAILY Subcutaneous; Duration: 88 Active Dulcolax (colon prep) 5 MG Tablet Delayed Release take at 3:00 p.m and 7:00p.m. Orally two tablets twice a day for one day; Duration: 1 day 12/18/2021 Active MiraLax (colon prep) 17 GM/SCOOP Powder 1 238 Gm bottle mixed with Gatorade or Crystal Light Orally begin at 5:00 p.m. the day before the procedure; Duration: 1 day 12/18/2021 Active Aspir-81 Active Latanoprost 0.005 % Solution Ophthalmic; Duration: 75 Act sophie Meloxicam 15 MG Tablet Oral; Duration: 90 Active Immunizations Vaccine Route Administration Date Status Comme nts Influenza Unknown 06/25/2021 Administered Social History Tobacco Use: Social History Observation Description Date Details (start date - stop date) Never Smoker NA - NA Social History Drugs/Alcohol: Social Info Question Answer Notes Alcohol Screen Did you have a drink containing alcohol in the past year? Yes How often did you have a drink containing alcohol in the past year? 2 to 4 times a month (2 points) Points 2 Interpretation Negative Tobacco Use: Social Info Question Answer Notes Tobacco Use/Smoking Patient is a nonsmoker Additional Details Category Social Info Options Details Miscellaneous: Marital status: Occupation: Retired from [employer] Section Notes: Nonsmoker; no sig alcohol Nonsmoker; no sig alcohol Problems Problem Type SNOMED Code ICD Code Onset Dates Problem Status W/U Status Risk Notes Problem Screening for malignant neoplasm of colon (335048814) Encounter for screening for malignant neoplasm of colon (Z12.11) Active confirmed Problem History of adenomatous polyp of colon (897089981) History of adenomatous polyp of colon (Z86.010) Active confirmed Problem Preprocedural examination (757573468969707) Preprocedural examination (Z01.818) Active confirmed Problem History of polyp of colon (situation) (701082837) History of colon polyps (Z86.010) Active confirmed Problem Diverticulosis of colon (433493633) Diverticulosis of colon (K57.30) Active confirmed Plan Of Treatment Future Test Test Name Order Date COLONOSCOPY 02/24/2017 COLONOSCOPY 12/18/2021 Insurance Providers Payer Name Payer Address Payer Phone Subscriber Number Group Number Insured Name Patient Relationship to Insured Coverage Start Date Coverage End Date [place]ARE OF [place] [address] [place] [address] [phone] [id number] REYNA GRANT Self - patient is the insured [facility] [address] [place] [phone] [id number] REYNA GRANT Self - patient is the insured Medical (General) History Medical History History ICD Code NIDDM---uses Metformin daily and prn ins ulin Hypertension Denies [place],,CVA,Lung disease,renal diseas e Seasonal allergies Hyperlipidemia Negative screening colonosco py in November of 2006--only mild sigmoid diverticulosis and small internal hemorrhoids Colonoscopy 05/2017 with small tubular ad enomas removed Surgical History Surgery Date(Month/Year) Left knee
== END 2025-07-26 11:47 | disposition home or self-care (01) ==
LOC: HO.ENCR 10:52
PROVIDERS: PCP Internal Medicine; Visit Provider Registered Nurse Diabetes Educator
DX: E11.65 Type 2 diabetes mellitus with hyperglycemia (principal)

== ENCOUNTER → 2025-07-26 10:51 | Outpatient (BNVA) | payer MEDICARE, OTHER, SELFPAY | PROVIDERS: PCP Internal Medicine; Visit Provider Registered Nurse Diabetes Educator | DX: E11.65 Type 2 diabetes mellitus with hyperglycemia (principal); E78.00 Pure hypercholesterolemia, unspecified | CPT/HCPCS: 99211 ==

== ENCOUNTER 2025-08-24 13:19 | Outpatient (AMB) | payer MEDICARE, OTHER, SELFPAY ==
--- NOTE | 2025-08-24 13:24 | A.OFFVIS_ITS ---
Vital Signs 08/24/25 13:32 Height 5 ft 3 in Weight 170 lb 3.15 oz BMI 30.1 BP 112/74 Blood Pressure Location Lt brachial Position Sitting Pulse 71 Pulse Source Pulse Oximeter Pulse Oximetry (%) 97 Oxygen Delivery Method Room Air Intake Visit Reasons: T2DM Intake Note: Patient present today for Diabetes mellitus follow up. Patient receives Dexcom G7 through: Mail order, unsure what company and stated he will call the office with that information Last Diabetic Eye exam: Was seen within the year, has yearly appointment Last Podiatry Visit: Does not see a [place] [facility] Operator Random Glucose: 114 mg/dl Hgb A1C: 7.5% 08/24/2025 Concrete Floater Required: No Accompanied by: Spouse Allergies No Known Allergies Allergy (Verified 08/24/25 13:32) HPI Comments Details: 70 YO M who is seen in consultation for T2DM at the request of PCP. Initially diagnosed with T2DM in 5 yrs . Never saw endo before Took Trulicity in past but stopped for unclear reasons Was initially started on treatment with metformin . Current regimen Lantus 60 units HS Humalog . 20 units TID Metformin 1000 mg BID Per the CGM Dexcom CGMS is active 89 % of time . data the patient's predicted A1C is 6.9% Avg glucose is 150 . Variability of 34.3 The patient's blood sugars were in target 73% of the time, above target 26% of the time, and below target 1% of the time Reports rare low sugars . Treats lows with cookies, soda . Checks sugar after to ensure it is rising. Treats according to waits 1 hr . No Family history of T2DM Has eyes checked yearly, last eye exam 12/2024 , denies retinopathy. Denies neuropathy, Not , sees podiatry. Denies nephropathy, Not on NANCY/ARB. Has HLD, on statin. Denies CAD. Not Had diabetes education. [facility] Medical History (Updated 07/04/25 @ 12:26 by Arcenio Leroy DPM) Uncontrolled type 2 diabetes mellitus with hyperglycemia HTN (hypertension) Elevated cholesterol Diabetes Surgical History H/O colonoscopy Hx of knee surgery Family History Mother No problems noted. Social History Alcohol intake: current Alcohol intake frequency: a few times a week Patient Tobacco Use Status: Tobacco use Unknown Current occupational status: retired Physical Exam Vital Signs: Last Vital Signs Pulse 71 08/24/25 13:32 BP 112/74 08/24/25 13:32 Pulse Ox 97 08/24/25 13:32 Oxygen Delivery Method Room Air 08/24/25 13:32 BMI result Body Mass Index 30.1 Absence of Cushingoid features. Absence of acromegalic features. Neck exam reveals nl size thyroid about 15 gms. No thyroid nodules palpable. No carotid bruits present. Lungs CTA. Heart S1 S2, Reg R/R. No M/R/ G. Skin exam reveals absence of vitiligo or acanthosis nigricans. Abdominal exam reveals Soft NT/ND with NA BS. No organomegaly present. Neck Other: . Extrem Other: Visual exam of foot performed. No ulcerations or open lesions. No onchomycosis, no callouses.Pulses 2 + distally Sensation intact to monofilament exam. Vibratory sensation sensed is intact with 128 Hz tuning fork Results AMB Hemoglobin A1c AMB Hemoglobin A1c 7.5 % Last Edit by MAHIN Lane on 08/24/25 13:54 Results Reviewed Results Reviewed: Laboratory Last Values Glucose (Clinic) 114 mg/dL (60-115) 08/24/25 13:41 Hgb A1c (Clinic) 7.5 % (4.0-6.0) H 08/24/25 13:45 Assessment & Plan Assessment & Plan (1) Uncontrolled type 2 diabetes mellitus with hyperglycemia: Code(s): E11.65 - Type 2 diabetes mellitus with hyperglycemia Category: Medical Plan: This is a 70-year-old male with a history of type 2 diabetes being treated with metformin and basal-bolus insulin with excellent improved glycemic control and no known microvascular macrovascular complications. Anti-juanita 65 antibodies were negative Plan is to continue the current regimen per We will have patient follow up with primary care diabetes team in4 mos Orders: Orders AMB Hemoglobin A1c Today E11.65 - Type 2 diabetes mellitus with hyperglycemia Coding Level of Care Code Est Pt Level 4 (09555) Add On Problem Visit Only Diagnoses Uncontrolled type 2 diabetes mellitus with hyperglycemia E11.65
[2025-08-24 13:32] VITALS: BP 112/74; PULSE 71; O2SAT 97; BMI 30.1
[2025-08-24 13:45] LABS: Glucose, Whole Blood 114 mg/dL (60-115)
--- OUTSIDE RECORDS SUMMARY | 2025-08-24 17:23 | XMS_ITS | Patient Health Record ---
Author Organization [facility] Address [address] [place] [address] Care Team Providers Care Timber Framer Helper Name Role Phone Jchuy Donna Primary Care Provider UnavailAd Burr Unavailable [phone] Allergies No Known Allergies Reason For Referral [...] Details Miscellaneous: Marital status: Occupation: Retired from [employer] Section Notes: Nonsmoker; no sig alcohol Nonsmoker; no sig alcohol Problems Problem Type SNOMED Code ICD Code Onset Dates Problem Status W/U Status Risk Notes Problem Screening for malignant neoplasm of colon (728413279) Encounter for screening for malignant neoplasm of colon (Z12.11) Active confirmed Problem History of adenomatous polyp of colon (386420655) History of adenomatous polyp of colon (Z86.010) Active confirmed Problem Preprocedural examination (870010411914123) Preprocedural examination (Z01.818) Active confirmed Problem History of polyp of colon (situation) (068689209) History of colon polyps (Z86.010) Active confirmed Problem Diverticulosis of colon (315640142) Diverticulosis of colon (K57.30) Active confirmed Plan Of Treatment Future Test Test Name Order Date COLONOSCOPY 02/24/2017 COLONOSCOPY 12/18/2021 Insurance Providers Payer Name Payer Address Payer Phone Subscriber Number Group Number Insured Name Patient Relationship to Insured Coverage Start Date Coverage End Date [place]ARE OF [place] [address] [place] [address] [phone] [id number] REYNA GRANT Self - patient is the insured [facility] [address] [place] [phone] [id number] REYNA GRANT Self - patient is the insured Medical (General) History Medical History History ICD Code NIDDM---uses Metformin daily and prn ins ulin Hypertension Denies [place],,CVA,Lung disease,renal diseas e Seasonal allergies Hyperlipidemia Negative screening colonosco py in November of 2006--only mild sigmoid diverticulosis and small internal hemorrhoids Colonoscopy 05/2017 with small tubular ad enomas removed Surgical History Surgery Date(Month/Year) Left knee
== END 2025-08-24 13:57 | disposition home or self-care (01) ==
LOC: HO.ENCR 13:19
PROVIDERS: PCP Internal Medicine; Visit Provider Internal Medicine Endocrinology, Diabetes & Metabolism
DX: E11.65 Type 2 diabetes mellitus with hyperglycemia (principal)
CPT/HCPCS: 99214; G2211

== ENCOUNTER → 2025-08-24 13:19 | Outpatient (BNVA) | payer MEDICARE, OTHER, SELFPAY | PROVIDERS: PCP Internal Medicine; Visit Provider Internal Medicine Endocrinology, Diabetes & Metabolism | DX: E11.65 Type 2 diabetes mellitus with hyperglycemia (principal) | CPT/HCPCS: 82947; 83036; 99212 ==

== ENCOUNTER 2025-09-01 08:50 | Outpatient (AMB) | payer MEDICARE, OTHER, SELFPAY ==
--- OUTSIDE RECORDS SUMMARY | 2025-09-01 08:52 | XMS_ITS | Patient Health Record ---
Author Organization [facility] Address [address] [place] [id number] Care Team Providers Care Cash Office Worker Name Role Phone Jchuy Donna Primary Care Provider UnavailAd Burr Unavailable [phone] Allergies No Known Allergies Reason For Referral [...] Details Miscellaneous: Marital status: Occupation: Retired from [employer] Section Notes: Nonsmoker; no sig alcohol Nonsmoker; no sig alcohol Problems Problem Type SNOMED Code ICD Code Onset Dates Problem Status W/U Status Risk Notes Problem Screening for malignant neoplasm of colon (403908042) Encounter for screening for malignant neoplasm of colon (Z12.11) Active confirmed Problem History of adenomatous polyp of colon (601020738) History of adenomatous polyp of colon (Z86.010) Active confirmed Problem Preprocedural examination (035273654111117) Preprocedural examination (Z01.818) Active confirmed Problem History of polyp of colon (situation) (925566563) History of colon polyps (Z86.010) Active confirmed Problem Diverticulosis of colon (444704865) Diverticulosis of colon (K57.30) Active confirmed Plan Of Treatment Future Test Test Name Order Date COLONOSCOPY 02/24/2017 COLONOSCOPY 12/18/2021 Insurance Providers Payer Name Payer Address Payer Phone Subscriber Number Group Number Insured Name Patient Relationship to Insured Coverage Start Date Coverage End Date [place]ARE OF [place] [address] [place] [address] [phone] [id number] REYNA GRANT Self - patient is the insured [facility] [address] [place] [phone] [id number] REYNA GRANT Self - patient is the [...]
--- NOTE | 2025-09-01 08:57 | A.OFFVIS_ITS ---
Intake Visit Reasons: fu type 2 diabetes Intake Note: glucose :247 A1c:7.5 no numbness or tingling in the feet Allergies No Known Allergies Allergy (Verified 09/01/25 08:58) HPI HPI fu type 2 diabetes: Details: 70-year-old male with past medical history of diabetes mellitus type 2 on insulin, cervical radiculopathy, and left knee pain returns for diabetic foot care. Patient endorses bilateral feet burning and tingling which has been present for several years. Denies any other pains to his feet. Complains of discolored hallux toenails bilaterally, has not started any treatment for it. He is on insulin and is using a CGM, planned for insulin pump. [facility] Medical History (Updated 09/01/25 @ 11:10 by Arcenio Leroy DPM) Uncontrolled type 2 diabetes mellitus with hyperglycemia HTN (hypertension) Elevated cholesterol Diabetes Surgical History H/O colonoscopy Hx of knee surgery Family History Mother No problems noted. Social History Alcohol intake: current Alcohol intake frequency: a few times a week Patient Tobacco Use Status: Tobacco use Unknown Current occupational status: retired Review of Systems Const All systems reviewed & are unremarkable except as noted in HPI and below Physical Exam Extrem Other: *Bilateral Lower Extremity Focused Diabetic Foot Exam Vascular: DP/PT 2/4, CFT<3s to digits, TG warm to cool, no pedal edema, pedal hair absent Derm: Skin: Xerosis to bilateral feet Interdigital spaces: Clear, no maceration or fungal infection. Nails: Dystrophic thickened elongated toenails x 10, bilateral hallux nail with subungual debris. Neuro: Protective sensation grossly diminished to bilateral lower extremities. Msk: Deformities: No evidence of hammertoes, bunions, Charcot changes, or other structural abnormalities. Muscle strength: 5/5 in all muscle groups. Gait: Normal, no antalgic or steppage gait observed. Footwear Assessment: Shoes inspected; appropriate fit, no excessive wear, or foreign objects noted. Office Procedures AMB Debridement/Avulsion Podia Details: Procedure: Nail debridement Location: 10 nails, bilateral feet Anesthesia: N/A Description: The affected toenails were cleansed with an antiseptic solution. Using sterile nail nippers and a rotary danielle, dystrophic and mycotic nail material was carefully debrided and reduced in thickness. Care was taken to avoid trauma to the surrounding skin and nail bed. All debris was removed as tolerated. The area was inspected for signs of infection or ulceration. Patient tolerated the procedure well without complications. Tolerance: Patient tolerated procedure well, no immediate complications. Class B findings as per physical exam findings above. The patient has a diagnosis of diabetes mellitus and presents with elongated, thickened toenails. Due to underlying diabetic neuropathy, the patient is at increased risk for complications such as ulceration, infection, and difficulty with self-care. Debridement of elongated toenails is medically necessary to prevent development of pressure-related lesions, reduce risk of secondary infection, and maintain foot health in high-risk comorbidities. 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 Remove build-up at the end of the week. 1 appl topical BEDTIME 6.6 mL 3RF Fungal toenails 4 months B35.1 - Tinea unguium ammonium lactate 12% (AmLactin) Apply to the bottom of both feet 1 appl topical DAILY 225 grams 3RF Xerosis L85.3 - Xerosis cutis Coding Level of Care Code Est Pt Level 3 (16122) Diagnoses Uncontrolled type 2 diabetes mellitus with hyperglycemia E11.65 Tinea unguium B35.1 Xerosis cutis L85.3 CPT Codes Skin Debridement - CPT: 78517-Xpqllhjlxjs of Nail 6+ ([id number]) Time Spent (min) 10 Comment Discussed peripheral neuropathy, fungal nails, and skin
== END 2025-09-01 09:20 | disposition home or self-care (01) ==
LOC: HO.HPODS 08:51
PROVIDERS: PCP Internal Medicine; Visit Provider Student in an Organized Health Care Education/Training Program
DX: E11.65 Type 2 diabetes mellitus with hyperglycemia (principal); B35.1 Tinea unguium; L85.3 Xerosis cutis
CPT/HCPCS: 11721; 99213

== ENCOUNTER → 2025-09-01 08:50 | Outpatient (BNVA) | payer MEDICARE, OTHER, SELFPAY | PROVIDERS: PCP Internal Medicine; Visit Provider Student in an Organized Health Care Education/Training Program | DX: E11.65 Type 2 diabetes mellitus with hyperglycemia (principal); Z79.4 Long term (current) use of insulin; B35.1 Tinea unguium; L85.3 Xerosis cutis | CPT/HCPCS: 11721; 99212 ==